=== PATIENT | female | born 1980 | race Caucasian/White ===

== ENCOUNTER 2020-06-17 01:06 | Outpatient (CLI) | payer BC, SELFPAY ==
[2020-06-17 16:32] LABS: SARS-CoV-2 RNA PCR Negative
== END 2020-06-17 01:07 | disposition home or self-care (01) ==
LOC: ANHCOVIDDT 01:06
PROVIDERS: Visit Provider Obstetrics & Gynecology
DX: Z01.812 Encounter for preprocedural laboratory examination (principal); Z20.828 Contact with and (suspected) exposure to other viral communicable diseases
CPT/HCPCS: 87635; C9803; U0003

== ENCOUNTER 2020-06-19 00:30 | Day surgery (SDC) | payer BC, SELFPAY ==
[2020-06-06 14:00] VITALS: BMI 18.4
[2020-06-19] VITALS (16 sets, daily range): BP systolic 112–150; BP diastolic 72–99; PULSE 62–110; RESP 14–20; TEMP 36.3–37.1; O2SAT 91–100
--- NOTE | 2020-06-19 | PM.IMHP ---
H&P: HPI History of Present Illness Date/Time: 06/19/20 00:00 Chief complaint: enlarge uterus, fibroid,menomenorrhaghia Narrative: 39 y/o with a fibroid uterus. She has bled most days of the last 2 months. On ultrasound, the uterus is fibroid. The adnexa demonstrate functional changes. The endometrial complex is unremarkable. She desires definitive management of her problem. Review of Systems Review of Systems: All systems reviewed & are unremarkable except as noted in HPI and below PMFSH Past Medical History Medical History (Updated 06/19/20 @ 00:07 by uRben Ac MD) Depression Lymphangioleiomyomatosis Pneumothorax Surgical History Surgical History History of chest tube placement History of ovarian cystectomy History of tubal ligation Family History Family History (Updated 06/19/20 @ 00:05 by Ruben Ac MD) Other Cerebrovascular accident Hypertension Malignant neoplasm of prostate Social History Social History Years smoked: 5 Smoking status: Former smoker Tobacco type: cigarettes Additional smoking assessment comments: QUIT 2013 Substance use: current Substance use type: marijuana Last use: 06/06/20 Spiritual care concerns: No Meds Home Medications and Allergies Home Medications Medication Instructions Recorded Confirmed Type fluoxetine [Prozac] 80 mg PO DAILY 06/06/20 06/06/20 History sirolimus 2 mg PO DAILY 06/06/20 06/06/20 History Allergies Allergy/AdvReac Type Severity Reaction Status Date / Time amoxicillin Allergy Intermediate Hives / Verified 06/06/20 14:01 Red Face Penicillins Allergy Mild RASH Unverified 06/06/20 14:01 Exam Const: Orientation/consciousness: patient oriented x3 Other: Well-developed, well-nourished female in no acute distress. Neck: Thyroid: thyroid normal Lymphatic: no lymphadenopathy noted (in neck, axilla or inguinal nodes) Resp: Effort & Inspection: normal respiratory effort Auscultation: clear to auscultation bilaterally Cardio: Rate: regular rate Rhythm: regular rhythm Heart sounds: S1 normal heart sound present and S2 normal heart sound present GI: Other: ABD: Soft, nontender, nondistended. No guarding or rebound tenderness. No hepatosplenomegaly. : General: Yes no CVA tenderness Other: External genitalia: normal female hair distribution, without lesion. Urethral meatus: no lesion, non prolapsed. Bladder: no mass, nontender Vagina: well-estrogenized, without lesion or discharge. No cystocele or rectocele. Cervix: no lesion or discharge. Uterus: small, anteverted, freely mobile, nontender Adnexa: no mass or tenderness. Anus/perineum: no lesions, nontender Back/Spine/Pelvis: Back: no CVA tenderness Skin: General skin exam: normal color and no rashes or lesions noted Neuro: General: patient oriented x3 Extrem: Other: Extremities: nontender with no edema Psych: Mental Status: mental status grossly normal Affect: normal affect Assessment and Plan Assessment and plan (1) Menometrorrhagia: Code(s): N92.1 - Excessive and frequent menstruation with irregular cycle Status: Acute Assessment and Plan: I have offered her medical vs. surgical management. She prefers definitive management. She has completed her childbearing and has had a tubal ligation. I have offered her total vaginal hysterectomy with bilateral salpingectomies. We will plan to leave the ovaries in situ. She understands hysterectomy will render her permanently sterile She understands risks of surgery to include risks of anesthesia, risks of pain, infection, bleeding, blood products, thromboembolic phenomena and damage to adjacent structures such as bowel, bladder, ureters, blood vessels and nerves. She understands all these risks and elects to proceed with surgery.
--- NOTE | 2020-06-19 08:02 | WPDANESEPPF ---
Anes - Initial Pre Proc Eval Procedure: Operation Date: 06/19/20 13:00 Proposed Procedures p Total Vaginal Hysterectomy, Bilateral Salpingectomy - Ruben Ac MD Date/Time: 06/19/20 08:02 Surgeon: Ruben Ac MD Pre Op Diagnosis: enlarge uterus, fibroid,menomenorrhaghia Patient Data Age: 39 Gender: F Height: 1.63 m Weight: 48.82 kg Allergies Allergy/AdvReac Type Severity Reaction Status Date / Time amoxicillin Allergy Intermediate Hives / Verified 06/06/20 14:01 Red Face Penicillins Allergy Mild RASH Unverified 06/06/20 14:01 Home Medications Medication Instructions Recorded Confirmed Type fluoxetine [Prozac] 80 mg PO DAILY 06/06/20 06/06/20 History sirolimus 2 mg PO DAILY 06/06/20 06/06/20 History Patient hx anesthesia problems: none Family hx anesthesia problems: none PMFSH Past Medical History Medical History (Updated 06/19/20 @ 08:03 by Bunny Wise MD) Anxiety Depression Lymphangioleiomyomatosis Pneumothorax 67% LUNG FUNCTION, PNEUMOTHORAX R LUNG X1, L LUNG X2, CHEST TUBE X3 Surgical History Surgical History History of chest tube placement History of ovarian cystectomy History of tubal ligation Family History Family History (Updated 06/19/20 @ 00:06 by Ruben Ac MD) Other Cerebrovascular accident Hypertension Malignant neoplasm of prostate Social History Social History Years smoked: 5 Smoking status: Former smoker Tobacco type: cigarettes Additional smoking assessment comments: QUIT 2013 Substance use: current Substance use type: marijuana Last use: 06/06/20 Spiritual care concerns: No Anes - Eval Final PreProcedure Day of Procedure 06/19/20 08:02 Patient weight: cachectic Heart: regular rate and rhythm Lungs: clear to auscultation and normal air movement Airway: Mallampati scale class II Neurological: alert and oriented Last oral intake: >/= 8 hours ASA classification: IV Emergent: no Anesthetic plan: proceed Anesthesia type and monitoring: general LMA and ETT Informed Consent: The patient's anesthetic plan and its attendant risks and benefits were discussed with the patient/family/POA. Questions were solicited and answers provided to the satisfaction of the patient/family/POA.
[2020-06-19] MEDS: ACETAMINOPHEN 500 MG TABLET 1000 MG PO (12:03)
[2020-06-19] MEDS: KETOROLAC 15 MG/ML VIAL (*BKC) IV PUSH (12:03)
[2020-06-19] MEDS: LACTATED RINGERS 1,000 ML 30 ML IV CONT ×2 (12:05→14:48)
--- NOTE | 2020-06-19 12:26 | WPDHPUPDATE1 ---
History and Physical Update Update Date/Time: 06/19/20 12:26 History and Physical has been reviewed, including an updated exam of the patient. There are NO changes in the patient's condition. Risks, benefits, and alternatives have been discussed and questions answered. Patient agrees to proceed with procedure.
[2020-06-19] MEDS: ceFAZolin 2 GM/D5W 50 ML 2 GM/50 ML BAG IVPB (13:29)
--- NOTE | 2020-06-19 14:45 | PM.PROC ---
Procedure Note - Detailed Date of procedure: 06/19/20 Pre-op diagnosis: enlarge uterus, fibroid,menomenorrhaghia Post-op diagnosis: same Procedure performed: Total vaginal hysterectomy with bilateral salpingectomies Incision and drainage of bilateral ovarian cysts Description of procedure: The patient was taken to the operating room where she was prepared and draped in the usual sterile fashion in the dorsal lithotomy position. The bladder was drained with red rubber catheter. A weighted speculum was placed posteriorly. A Yas retractor was used anteriorly. The cervix was grasped with a single-tooth tenaculum. Ten mL of sterile saline was infiltrated circumferentially around the cervix to aid in tissue plane dissection. The cervix was circumscribed using electrocautery. The peritoneal cavity was entered sharply posteriorly and a long weighted speculum was placed. The uterosacral and cardinal ligaments on both sides were then clamped, transected and suture ligated using 0 Vicryl. These were tagged for later identification. The bladder was dissected off the cervix and lower uterine segment and reflected away. The LigaSure device was then used to clamp, ligate and transect the broad ligaments bilaterally. Finally, the utero-ovarian ligament, round ligament and tube complexes on both sides were able to be clamped, transected and suture ligated using 0 Vicryl. The specimen was passed off to be sent to pathology. The bilateral fallopian tubes were then dissected, clamped, ligated and transected using the LigaSure device and passed off the field. The pedicles were inspected and found to be hemostatic. Bilateral simple appearing ovarian cysts were incised with the Bovie and drained of clear fluid. Hemostasis was excellent here as well. The vaginal cuff angles were then transfixed to the ipsilateral cardinal uterosacral ligaments for support. The vaginal cuff was reapproximated using 0 Vicryl in a running, locked fashion. Hemostasis was excellent. A Oh catheter was placed. Vaginal packing soaked in Premarin cream was placed. Sponge, lap, needle and instrument counts were correct. The patient was awakened and taken to the recovery room in stable condition. I was present and scrubbed for the entire procedure. Implants: None Anesthesia: GETA Surgeon: Ruben Ac MD Estimated blood loss (mL): 300 Drains: Yes (Oh) Packing: Yes (Vaginal packing) Pathology: yes (uterus, cervix and bilateral Fallopian tubes) Complications: None Condition: stable Disposition: PACU Findings: Uterus was enlarged and obviously fibroid. Cervix unremarkable. Mild right hydrosalpinx. Evidence of prior tubal ligation. Otherwise unremarkable Fallopian tubes. Bilateral ovaries enlarged, approximately 5x4x4 cm, with simple-appearing cysts.
--- NOTE | 2020-06-19 14:50 | P.DS_ITS ---
DS: Admitting Diagnosis Admitting Diagnosis Admitting Diagnosis: Symptomatic fibroid uterus Menometrorrhagie DS: Discharge Diagnosis Discharge Diagnosis (1) Menometrorrhagia: Code(s): N92.1 - Excessive and frequent menstruation with irregular cycle Status: Acute (2) Fibroid uterus: Code(s): D25.9 - Leiomyoma of uterus, unspecified Status: Acute DS: Data Data Completed and Pending Pending studies at discharge: Pending at discharge 06/19/20 14:07 Surgical [PTH] Routine Labs on day of discharge: Labs from last 24 hours 06/19/20 12:02 Blood Type O Positive Antibody Screen Negative Discharge Plan Discharge Patient Disposition: Home, Self-Care Discharge Instructions: Call or return if temperature above 100.4? F, increased abdominal pain, increased vaginal bleeding or any new problems. Stand Alone Forms: General Discharge Instructions Follow-up/Referrals: Ruben Ac MD [Physician] - (4 weeks) Discharge Medications: New hydrocodone-acetaminophen [[place]] 5-325 mg tablet 1 - 2 tablet PO Q6H PRN (Reason: pain) Qty: 30 RF: 0 No Action fluoxetine [Prozac] 40 mg Capsule 80 mg PO DAILY RF: 0 sirolimus 2 mg Tablet 2 mg PO DAILY RF: 0 Primary Care Provider: MARIA ANTONIA,SOSA Reed Attending physician on admission: Ruben Ac
--- NOTE | 2020-06-19 16:25 | PC.NURSE ---
This patient, Liz Petersen, was received from PACU on 06/19/20 at 1625. Personal belongings list checked and signed. Patient/family oriented to unit policies and routines
[2020-06-19] MEDS: DEXTROSE 5%/0.45% SOD CHL 1,000 ML 125 ML IV CONT (17:15)
[2020-06-19] MEDS: MORPHINE SULFATE 4 MG/ML INJ IV PUSH (17:15)
[2020-06-19] MEDS: KETOROLAC 30 MG/ML VIAL (*BKC) IV PUSH (17:16)
[2020-06-19] MEDS: SIMETHICONE 80 MG TAB.CHEW PO ×2 (17:17→21:41)
[2020-06-19] MEDS: ENOXAPARIN 40 MG/0.4 ML SYRINGE SUB-Q (21:42)
[2020-06-19] MEDS: ONDANSETRON INJ 4 MG/2 ML VIAL IV PUSH (23:03)
[2020-06-20] MEDS: IBUPROFEN 600 MG TABLET PO ×2 (02:52→07:44)
[2020-06-20 04:52] VITALS: BP 121/73; PULSE 79; RESP 18; TEMP 36.7; O2SAT 100
[2020-06-20 05:42] LABS: Basophils Percent Auto 0.2 % (0.2-1.2); Hematocrit 35.8 % (37.0-47.0); Hemoglobin 11.6 g/dL (12.0-15.0); Immature Granulocyte Absolute 0.07 K/mm3 (0.00-0.031); Immature Granulocyte Percent A 0.4 % (0-0.5); Lymphocytes Absolute Auto 1.29 K/mm3 (0.9-3.2); Lymphocytes Percent Auto 8.2 % (18.3-44.2); Mean Corpuscular HGB Conc 32.4 g/dl (32-36); Mean Corpuscular Hemoglobin 27.8 pg (26-34); Mean Corpuscular Volume 85.9 fl (80-100); Mean Platelet Volume 11.8 fl (7.4-10.4); Monocytes Absolute Auto 0.8 K/mm3 (0.1-0.6); Monocytes Percent Auto 5.3 % (2.6-8.5); Neutrophils Absolute Auto 13.6 K/mm3 (1.3-6.7); Neutrophils Percent Auto 85.9 % (45.5-73.1); Platelet Count Result 153 k/mm3 (150-375); Red Blood Count 4.17 M/mm3 (4.2-5.4); Red Cell Distribution Width 13.8 % (11.5-14.5); White Blood Count 15.8 K/mm3 (4.5-10.0)
[2020-06-20] MEDS: FLUoxetine HCL 20 MG CAPSULE 80 MG PO (07:43)
[2020-06-20] MEDS: SIMETHICONE 80 MG TAB.CHEW PO (07:44)
[2020-06-20 08:00] VITALS: BP 114/63; PULSE 67; RESP 18; TEMP 37.1; O2SAT 100
--- NOTE | 2020-06-20 08:51 | PM.GYNPNOP ---
PALEONTOLOGICAL HELPER - A/P Postoperative Procedures: Procedures Operation Date: 06/19/20 13:00 Actual Procedures Side Surgeon p Total Vaginal Hysterectomy, Bilateral Salpingectomy, Incision and Drainage Bilateral Ovarian Cyst Not Applicable Ruben Ac MD A: POD#1, doing well. P: Home to f/u 4 weeks. Time Spent With Patient Time with patient: less than 15 minutes PALEONTOLOGICAL HELPER- PN:Subj Post-Op Subjective Date/time seen: 06/20/20 08:51 Interval history: Pain OK. Tolerating diet. Voiding. Would like to go home. Exam Narrative: Exam Narrative: AVSS I/O OK ABD soft, nontender. EXT nontender PALEONTOLOGICAL HELPER - PN: Obj Data Vital Signs Vital Signs: Vital Signs - 24 hr 06/19/20 11:12 06/19/20 14:48 06/19/20 15:00 Temperature 37.1 C 36.4 C L 36.5 C Pulse Rate 83 110 H 99 Respiratory Rate 20 16 18 Blood Pressure 150/99 H 144/91 H 137/85 Pulse Oximetry 94 100 99 06/19/20 15:15 06/19/20 15:30 06/19/20 15:45 Temperature 36.9 C 36.8 C 36.6 C Pulse Rate 95 79 79 Respiratory Rate 17 14 19 Blood Pressure 130/88 131/84 123/82 Pulse Oximetry 95 92 95 06/19/20 16:00 06/19/20 16:15 06/19/20 16:30 Temperature 36.7 C 36.3 C L Pulse Rate 71 78 81 Respiratory Rate 18 16 20 Blood Pressure 116/91 H 114/81 120/80 Pulse Oximetry 91 92 100 06/19/20 16:45 06/19/20 17:00 06/19/20 17:15 Temperature Pulse Rate 72 74 69 Respiratory Rate 18 20 18 Blood Pressure 118/79 112/80 131/78 Pulse Oximetry 100 99 100 06/19/20 18:00 06/19/20 19:00 06/19/20 20:15 Temperature 36.6 C Pulse Rate 72 69 95 Respiratory Rate 18 Blood Pressure 144/72 H 125/82 133/95 H Pulse Oximetry 96 97 100 06/19/20 23:08 06/20/20 04:52 Temperature 36.9 C 36.7 C Pulse Rate 62 79 Respiratory Rate 15 18 Blood Pressure 119/77 121/73 Pulse Oximetry 98 100 Intake/Output Intake/Output: Intake & Output 06/17/20 06/18/20 06/19/20 06/20/20 23:59 23:59 23:59 23:59 Intake Total 1250 800 Output Total 370 1600 Balance 880 -800 Meds/Results Medications: Active Medications Generic Name Dose Route Start Last Admin Trade Name Freq PRN Reason Stop Dose Admin Hydrocodone Bitart/Acetaminophen 1 tab 06/19/20 16:19 06/20/20 07:45 [place] 5-325 Mg PO 1 tab Q3H PRN Administration Pain Rated 5 or Less Hydrocodone Bitart/Acetaminophen 1 tab 06/19/20 16:19 [place] 10-325 Mg PO Q3H PRN Pain Rated 6 or Greater Enoxaparin Sodium 40 mg 06/19/20 21:00 06/19/20 21:42 Lovenox SUB-Q 40 mg DAILY@2100 LETTY Administration Fluoxetine HCl 80 mg 06/20/20 09:00 06/20/20 07:43 Prozac PO 80 mg DAILY LETTY Administration Dextrose/Sodium Chloride 1,000 mls @ 125 mls/hr 06/19/20 16:19 06/19/20 17:15 Dextrose 5% Sodium Chloride 0.45% IV CONT 125 mls/hr .Q8H LETTY Administration Ibuprofen 600 mg 06/19/20 16:19 06/20/20 07:44 Motrin PO 600 mg Q6H PRN Administration Cramping Ketorolac Tromethamine 30 mg 06/19/20 16:19 06/19/20 17:16 Toradol Inj IV PUSH 06/24/20 16:20 30 mg Q6H PRN Administration Pain Rated 4-6 Morphine Sulfate 4 mg 06/19/20 16:19 06/19/20 17:15 Morphine Sulfate Inj IV PUSH 4 mg Q4H PRN Administration Severe breakthrough pain Naloxone HCl 0.1 mg 06/19/20 16:19 Narcan IV PUSH Q2M PRN Respiratory rate less than 10 Non-Formulary Medication 2 mg 06/20/20 09:00 Sirolimus PO 07/20/20 09:01 DAILY LETTY Ondansetron HCl 4 mg 06/19/20 16:19 06/19/20 23:03 Zofran Inj IV PUSH 4 mg Q6H PRN Administration Nausea And Vomiting Simethicone 80 mg 06/19/20 16:19 06/20/20 07:44 Mylicon PO 80 mg Q2H PRN Administration Gas Labs CBC & Chem 7: 06/20/20 04:49 Labs: Laboratory Results - last 24 hr 06/19/20 06/20/20 12:02 04:49 WBC 15.8 H RBC 4.17 L Hgb 11.6 L Hct 35.8 L MCV 85.9 MCH 27.8 MCHC 32.4 RDW 13.8 Plt Count 153 MPV 11.8 H Immature Gran % (Auto)
--- NOTE | 2020-06-20 09:31 | WPDANESPN ---
Anes - Prog Note Post-Op Date/Time: 06/20/20 09:31 Cardiovascular status: normal Respiratory status: normal Airway patency: baseline Mental status: baseline Post-Op hydration status: normal Vital Signs: Last Vital Signs Temp 36.7 C 06/20/20 04:52 Pulse 79 06/20/20 04:52 Resp 18 06/20/20 04:52 BP 121/73 06/20/20 04:52 Pulse Ox 100 06/20/20 04:52 Pain Score (VAS): 0/10 I/O: Intake & Output 06/19/20 06/20/20 06/20/20 23:59 07:59 15:59 Intake Total 700 800 Output Total 310 1600 Balance 390 -800 Laboratory Tests 06/20/20 04:49 06/19/20 06/20/20 12:02 04:49 WBC 15.8 H RBC 4.17 L Hgb 11.6 L Hct 35.8 L MCV 85.9 MCH 27.8 MCHC 32.4 RDW 13.8 Plt Count 153 MPV 11.8 H Immature Gran % (Auto) 0.4 Neut % (Auto) 85.9 H Lymph % (Auto) 8.2 L [place] % (Auto) 5.3 Eos % (Auto) 0.0 Baso % (Auto) 0.2 Lymph # (Auto) 1.29 [place] # (Auto) 0.8 H Eos # (Auto) 0.0 Baso # (Auto) 0.0 Abs Immat Gran (auto) 0.07 H Absolute Neuts (auto) 13.6 H Absolute Nucleated RBC 0.0 Nucleated RBC % 0.0 Blood Type O Positive Antibody Screen Negative Post-procedural complaints: none Patient Feedback: Patient satisfied with anesthetic care.
--- NOTE | 2020-06-20 10:46 | PC.NURSE ---
Self care discharge instructions given to pt.l including when to make appt. with MD. Pt. doing well. Voiced understanding. No questions or concerns noted. at side. Anxious for discharge.
== END 2020-06-20 11:25 | disposition home or self-care (01) ==
LOC: ANHSURGERY 14:51 → ANHOB2 17:15
PROVIDERS: PCP Family Medicine; Visit Provider Obstetrics & Gynecology
PROC: (CPT 58260; principal; 2020-06-19 13:00)
DX: N72 Inflammatory disease of cervix uteri (principal); N80.0 Endometriosis of uterus; N73.6 Female pelvic peritoneal adhesions (postinfective); N70.11 Chronic salpingitis; N83.8 Other noninflammatory disorders of ovary, fallopian tube and broad ligament; N92.1 Excessive and frequent menstruation with irregular cycle; F41.8 Other specified anxiety disorders; Z87.891 Personal history of nicotine dependence; F12.90 Cannabis use, unspecified, uncomplicated
CPT/HCPCS: 58262; 36415; 85025; 86850; 86900; 86901; 88307; 99199; A9270; J0690; J1100; J1170; J1650; J1885; J2250; J2270; J2405; J2704; J3010; J7030; J7120

== ENCOUNTER 2021-03-21 20:57 | Inpatient (IN) | payer OTHER, SELFPAY ==
--- NOTE | ~2021-03-21 | CT_ITS ---
EXAMINATION: CT abdomen pelvis w con EXAM DATE: 03/22/2021 00:26 INDICATION: Low abdominal pain. Dysuria. Reportedly recently admitted for ovarian abscess. TECHNIQUE: Spiral CT of the abdomen and pelvis was performed following intravenous injection of 100 m L Omnipaque 350. Axial, coronal and sagittal images of the abdomen and pelvis were reviewed. The do se-length product (DLP) for this examination was 473.39 mGy-cm. The exposure was tailored according to patient size (auto mA exposure control), and iterative reconstruction (ASIR) was used as additiona l dose reduction technique. There is no prior study for comparison. FINDINGS: Enlarged multicystic bilateral adnexal regions with extensive fat stranding, most consisten t with bilateral tubo-ovarian abscesses. Measurements obtained at 9.0 x 4.5 x 7.1 cm on the right and 12.0 x 5.3 x 10.0 cm on the left. Significant bladder wall thickening which could be reactive or cys titis, correlate with urinalysis. Thickening of the traversing adjacent sigmoid colon which also coul d be reactive or colitis. The liver, spleen, adrenal glands and pancreas are unremarkable. Gallbladder is unremarkable. No bi liary obstruction. Portal and splenic veins are patent. Kidneys enhance symmetrically. There is no hydronephrosis. The prostate is unremarkable. The bladder is unremarkable. There is no retroperi toneal or pelvic lymphadenopathy. Small fat-containing umbilical hernia. The appendix is dilated, probably secondarily from the pelvic inflammation. The stomach and small priscilla wel are unremarkable. There is moderate amount of colonic stool. No free intraperitoneal gas. He art is normal in size. There are left-sided calcified pleural plaques and mild pleural thickening, pr obably from prior empyema given right-sided is normal. Moderate amount of basilar lung cysts, appear ance most consistent with lymphangioleiomyomatosis. Bilateral L5 spondylolysis with grade 2 anteroli sthesis L5 on S1, chronic. IMPRESSION: 1. Bilateral adnexal complex cystic masses with inflammation probably tubo-ovarian abscesses. 2. Severe bladder wall thickening cystitis and/or reactive. 3. Moderate sigmoid edema, colitis or reactive. 4. Appendix dilation probably reactive. 5. 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 6. Chronic L5 spondylolysis, grade 2 anterolisthesis. Reviewed, dictated and finalized at location A. IMPRESSION: 1. Bilateral adnexal complex cystic masses with inflammation probably tubo-ova miguel abscesses. 2. Severe bladder wall thickening cystitis and/or reactive. 3. Moderate sigmoid edema, colitis or reactive. 4. Appendix dilation probably reactive. 5. 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 6. Chronic L5 spondylolysis, grade 2 anterolisthesis.
[2021-03-21 21:22] VITALS: BP 140/94; PULSE 97; RESP 18; O2SAT 100
--- NOTE | 2021-03-21 23:31 | PC.NURSE ---
No answer for blood draw in waiting room.
[2021-03-21 23:49] LABS: Basophils Percent Auto 0.4 % (0.2-1.2); Eosinophils Absolute Auto 0.1 K/mm3 (0-0.3); Eosinophils Percent Auto 1.7 % (0-4.4); Hematocrit 34.1 % (37.0-47.0); Hemoglobin 10.6 g/dL (12.0-15.0); Immature Granulocyte Absolute 0.02 K/mm3 (0.00-0.031); Immature Granulocyte Percent A 0.2 % (0-0.5); Lymphocytes Absolute Auto 2.02 K/mm3 (0.9-3.2); Lymphocytes Percent Auto 25.1 % (18.3-44.2); Mean Corpuscular HGB Conc 31.1 g/dl (32-36); Mean Corpuscular Hemoglobin 24.4 pg (26-34); Mean Corpuscular Volume 78.4 fl (80-100); Mean Platelet Volume 10.5 fl (7.4-10.4); Monocytes Absolute Auto 0.6 K/mm3 (0.1-0.6); Monocytes Percent Auto 7.8 % (2.6-8.5); Neutrophils Absolute Auto 5.2 K/mm3 (1.3-6.7); Neutrophils Percent Auto 64.8 % (45.5-73.1); Platelet Count Result 191 k/mm3 (150-375); Red Blood Count 4.35 M/mm3 (4.2-5.4); Red Cell Distribution Width 18.8 % (11.5-14.5); White Blood Count 8.1 K/mm3 (4.5-10.0)
[2021-03-21 23:59] LABS: Alanine Aminotransferase 14 U/L (4-35); Albumin Level 3.9 g/dL (3.5-5.1); Alkaline Phosphatase 99 U/L (38-126); Anion Gap 9 mmol/L (8-16); Aspartate Amino Transferase 28 U/L (14-36); Bilirubin,Total 0.4 mg/dL (0.2-1.3); Blood Urea Nitrogen 13 mg/dL (7-17); Calcium 9.2 mg/dL (8.4-10.2); Carbon Dioxide 28 mmol/L (22-30); Chloride 102 mmol/L (98-107); Estimated CRCL calculation 74 ml/min; Estimated Glomerular Filt Rate > 60; Glucose 87 mg/dL (65-105); Lipase 133 U/L (23-300); Potassium 3.4 mmol/L (3.4-5.0); Sodium 139 mmol/L (137-145)
[2021-03-22 00:24] LABS: Add Urine Microscopic? YES; Appearance Urine Clear (Clear); Bacteria Urine Trace /hpf; Bilirubin Urine Negative (Negative); Blood Urine Negative (Negative); Color Urine Amber (Yellow); Glucose Urine UA Negative (Negative); Ketones Urine Negative (Negative); Leukocyte Esterase Ur Negative LEU/UL (Negative); Mucus Urine Heavy /lpf; Nitrate Urine Negative (Negative); Protein Urine 2+ mg/dL (Negative); Squamous Epithelial Cell Urine Few /hpf (Few)
[2021-03-22 00:25] LABS: Specific Grav Ur 1.032 (1.001-1.035)
--- NOTE | 2021-03-22 01:42 | ED.GENADULT ---
HPI - General Adult General Chief complaint: Abdominal Pain Stated complaint: abd pain Time Seen by Provider: 03/21/21 23:51 History of Present Illness HPI narrative: Patient 40-year-old female presents emerged from with chief complaint of pelvic pain. Patient reports that she was recently admitted at [facility] after having a tubo-ovarian abscess and colitis. The patient states she was treated with antibiotics finished a course of antibiotics was feeling better and then the last couple of days she started having pain again in bilateral pelvic areas. The patient states that she has had a hysterectomy previously by Dr. Casey. Patient states that she had no fevers Related Data Home Medications Medication Instructions Recorded Confirmed fluoxetine [Prozac] 80 mg PO DAILY 06/06/20 06/19/20 sirolimus 2 mg PO DAILY 06/06/20 06/19/20 Allergies Allergy/AdvReac Type Severity Reaction Status Date / Time amoxicillin Allergy Intermediate Hives / Verified 03/21/21 21:27 Red Face Penicillins Allergy Mild RASH Verified 03/21/21 21:27 Review of Systems Review of Systems: Narrative: A 10 system review of systems was completed on the patient and is negative except for what is stated in the HPI. Nursing and ancillary documentation was reviewed. [facility] Past Medical History Medical History Anxiety Depression Lymphangioleiomyomatosis Pneumothorax 67% LUNG FUNCTION, PNEUMOTHORAX R LUNG X1, L LUNG X2, CHEST TUBE X3 Surgical History Surgical History History of chest tube placement History of ovarian cystectomy History of tubal ligation Family History Family History Other Cerebrovascular accident Hypertension Malignant neoplasm of prostate Social History Social History Years smoked: 5 Smoking status: Former smoker Tobacco type: cigarettes Additional smoking assessment comments: QUIT 2013 Substance use: current Substance use type: marijuana Last use: 06/06/20 Spiritual care concerns: No Exam Narrative: Exam Narrative: GENERAL: Well-appearing, well-nourished, and in no acute distress. HEAD: Normocephalic, atraumatic. EYES: PERRLA and EOMI. ENT: Nares clear, no rhinorrhea or epistaxis. Mucous membranes moist. NECK: Supple. CHEST: Clear to auscultation. No respiratory distress. HEART: Regular rate and rhythm. No murmur heard. Normal peripheral pulses. ABDOMEN: Soft, tender to palpation in bilateral lower quadrants, nondistended, normal active bowel sounds. EXTREMITIES: Normal range of motion. No edema. SKIN: Warm, dry, no rash. NEURO: No focal deficits. Alert and oriented x3. PSYCH: Normal mood and affect. Course Course Emergency Course: CT scan showed evidence of enlarged multicystic bilateral adnexa concerning for tubo-ovarian abscesses. There is also evidence of proctocolitis and the appendix was somewhat enlarged although it was felt that this was reactive by the radiologist. The case was discussed with Dr. Elizondo who is on-call for [employer] the patient will be admitted for observation and pain control and further evaluation. Vital Signs Vital signs: Vital Signs Pulse Rate 97 03/21/21 21:22 Respiratory Rate 18 03/21/21 21: Blood Pressure 140/94 H 03/21/21 21:22 Pulse Oximetry 100 03/21/21 21: Pulse Rate 97 03/21/21 21:22 Respiratory Rate 18 03/21/21 21: Blood Pressure 140/94 H 03/21/21 21: Pulse Oximetry 100 03/21/21 21:22 Medical Decision Making Vital Signs Vital Signs: Vital Signs Pulse Rate 97 03/21/21 21: Respiratory Rate 18 03/21/21 21: Blood Pressure 140/94 H 03/21/21 21:22 Pulse Oximetry 100 03/21/21 21:22 Pulse Rate 97 03/21/21 21:22 Respiratory Rate 18
[2021-03-22 02:13] VITALS: BP 139/76; PULSE 94; RESP 18; O2SAT 99
--- NOTE | 2021-03-22 02:47 | PC.NURSE ---
Attempt to call report to floor, floor unable to take. Pt ambulatory with assist to bathroom, c/o worsening abd pain. Dr. Spain made aware.
[2021-03-22] MEDS: MORPHINE SULFATE (*CRX) 4 MG/ML INJ IV PUSH ×5 (02:53→22:24)
--- NOTE | 2021-03-22 03:00 | ADMGEN ---
This patient, Liz Petersen, was admitted to 2 Medical Room 247-01 03/22/21 @0300. Patient/family oriented to hospital policies and general routines including ID bracelet, bed and alarms, visiting hours, pain management, procedures, bathroom and other care routines, personal items, smoking policy, room service/diet, and visiting hours. Information on how to activate the Rapid Response Team has been discussed. Patient/Family are encouraged to report perceived risks to care and to ask questions if they do not understand what they are told or what they should do.
[2021-03-22] MEDS: SODIUM CHLORIDE 0.9% IV 1,000 ML 125 ML IV CONT (03:15)
[2021-03-22 06:00] VITALS: BP 137/99; PULSE 102; RESP 16; TEMP 36.4; O2SAT 100
[2021-03-22 06:06] VITALS: BMI 32.1
[2021-03-22] MEDS: ONDANSETRON INJ 4 MG/2 ML VIAL IV PUSH ×4 (06:29→22:25)
[2021-03-22 08:00] VITALS: PULSE 102; RESP 16; O2SAT 94
--- NOTE | 2021-03-22 08:25 | PM.IMHP ---
H&P: HPI History of Present Illness Date/Time: 03/22/21 08:25 40 yo F who presented to the ED with complaints of worsening abdominal/pelvic pain. Pt states that approximately 3 weeks ago she was admitted at [facility] in [place], [place] for similar symptoms. She was given a course of IV antibiotics and discharged home with a course of PO antibiotics of suspected tuboovarian abscess. Pt was seen in the office this past week for follow up and received an US. Pt states she had some cysts of her ovaries but there was no concern at that time. Pt is s/p hysterectomy with bilateral salpingectomy in 2019. 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 Pt states her abdominal/pelvic pain worsened since the time of her visit so she presented to the ED. Pt had a CT sacan which showed enlarged cystic ovaries and proctitis. Pt states she still had some abdominal/pelvic discomfort. She denies any nausea, vomiting, fevers, chills. Chief Complaint: abdominal pain Review of Systems Review of Systems: All systems reviewed & are unremarkable except as noted in HPI and below PMFSH Past Medical History Medical History Anxiety Depression Lymphangioleiomyomatosis Pneumothorax 67% LUNG FUNCTION, PNEUMOTHORAX R LUNG X1, L LUNG X2, CHEST TUBE X3 Surgical History Surgical History History of chest tube placement History of ovarian cystectomy History of tubal ligation Family History Family History Other Cerebrovascular accident Hypertension Malignant neoplasm of prostate Social History Social History Years smoked: 5 Smoking status: Former smoker Tobacco type: cigarettes Additional smoking assessment comments: QUIT 2013 Alcohol intake: never Substance use: never Substance use type: does not use Last use: 06/06/20 Spiritual care concerns: No Meds Home Medications and Allergies Home Medications Medication Instructions Recorded Confirmed Type sirolimus 2 mg PO DAILY 06/06/20 03/22/21 History venlafaxine 150 mg PO DAILY 03/22/21 03/22/21 History Allergies Allergy/AdvReac Type Severity Reaction Status Date / Time amoxicillin Allergy Intermediate Hives / Verified 03/22/21 03:18 Red Face Penicillins Allergy Mild RASH Verified 03/22/21 03:18 Vital Signs Vital Signs - 24 hr 03/21/21 21:22 03/22/21 02:13 03/22/21 06:00 Temperature 36.4 C L Pulse Rate 97 94 102 H Respiratory Rate 18 18 16 Blood Pressure 140/94 H 139/76 137/99 H Pulse Oximetry 100 99 100 Exam Const: General: cooperative, comfortable and no acute distress Eyes: General: appearance normal, both eyes and all related structures Neck: Neck: normal visual inspection Resp: Effort & Inspection: normal respiratory effort and able to speak in complete sentences Cardio: Rate: tachycardic Rhythm: regular rhythm GI: Inspection: normal to inspection GI Palp: Yes abdominal tenderness, Yes Soft to palpation, No Guarding due to palpation present (GI) and No Rebound tenderness present Skin: General skin exam: normal color and no rashes or lesions noted Neuro: General: patient oriented x3 Cognition (Neuro): normal cognition Speech: normal speech Extrem: General: normal to inspection and full ROM Psych: Appearance: grossly normal and well kempt Mental Status: mental status grossly normal H&P: Results Labs Labs: Short CBC 03/21/21 Range/Units 23:44 WBC 8.1 (4.5-10.0) K/mm3 Hgb 10.6 L (12.0-15.0) g/dL Hct 34.1 L (37.0-47.0) % Plt Count 191 (150-375) k/mm3 BMP 03/21/21 23:44 Sodium 139 Potassium 3.4 Chloride 102 Carbon Dioxide 28 BUN 13 Creatinine 0.90 Glucose 87 Calcium 9.2 Liver Function 03/11
[2021-03-22] MEDS: cefoTEtan DISODIUM INJ 2 GM in DEXTROSE 5% IN WATER 50 ML IVPB ×2 (10:22→22:18)
[2021-03-22] MEDS: DOXYCYCLINE HYCLATE 100 MG TABLET PO ×2 (10:22→22:18)
[2021-03-22 11:07] VITALS: O2SAT 94
[2021-03-22 14:20] VITALS: BP 142/84; PULSE 92; RESP 16; TEMP 36.6; O2SAT 98
[2021-03-22 21:10] VITALS: BP 139/85; PULSE 81; RESP 16; TEMP 36.9; O2SAT 96
[2021-03-23] MEDS: MORPHINE SULFATE (*CRX) 4 MG/ML INJ IV PUSH ×2 (03:21→07:49)
[2021-03-23] MEDS: ONDANSETRON INJ 4 MG/2 ML VIAL IV PUSH ×2 (03:21→07:49)
[2021-03-23 05:31] VITALS: BP 143/85; PULSE 96; RESP 16; TEMP 36.9; O2SAT 95
--- NOTE | 2021-03-23 08:31 | PM.DS ---
DS: Admitting Diagnosis Admitting Diagnosis Admitting Diagnosis: abdominal pain ovarian cysts DS: Discharge Diagnosis Discharge Diagnosis (1) Abdominal pain: Qualifiers: Abdominal location: lower abdomen, unspecified Qualified Code(s): R10.30 - Lower abdominal pain, unspecified Code(s): R10.9 - Unspecified abdominal pain Status: Acute DS: Summary Hospital Course Reason for hospitalization: acute abdominal pain ovarian cysts Hospital Course: 40 yo F who presents for acute onset abdominal pain. CT scan in the ED showed bilaterally enlarged cystic ovaries and overall pelvic inflammation. Pt was seen several weeks earlier in [facility] for similar symptoms. She was treated with antibiotics at that time which improved her symptoms. Pt was treated for suspected TOA. Pt is s/p hysterectomy. She remained afebrile and without any leukocytosis. She received IV cefotetan and doxycycline. Pt remains stable today. She states her pain is still present but overall tolerable with pain medications. Status at Discharge Overall status at discharge: patient is progressing back to baseline Time Spent with Patient Time attestation: Total time spent providing and/or coordinating discharge services: Time spent: Less than 30 minutes Exam Const: General: cooperative, healthy appearing, comfortable and no acute distress Eyes: General: appearance normal, both eyes and all related structures Neck: Neck: normal visual inspection Resp: Effort & Inspection: normal respiratory effort and able to speak in complete sentences Cardio: Rate: regular rate Rhythm: regular rhythm GI: Inspection: normal to inspection and non-distended GI Palp: Yes abdominal tenderness, Yes Soft to palpation, No Guarding due to palpation present (GI) and No Rebound tenderness present Skin: General skin exam: normal color and no rashes or lesions noted Neuro: General: oriented to person, oriented to place and oriented to time Extrem: General: normal to inspection and full ROM Psych: Appearance: grossly normal and well kempt Mental Status: mental status grossly normal Discharge Plan Discharge Discharging Clinician: Marlon Elizondo Patient Disposition: Home, Self-Care Activity: as tolerated and pelvic rest Diet: regular Patient Instructions: Antibiotic Form Stand Alone Forms: General Discharge Information Follow-up/Referrals: Ruben Ac MD [Physician] - Call for Appointment Discharge Medications: New hydrocodone-acetaminophen 5-325 mg tablet 1 tablet PO Q4H PRN (Reason: pain) Qty: 28 RF: 0 doxycycline hyclate 100 mg Tablet 100 mg PO Q12HR 14 Days Qty: 28 RF: 0 Continued sirolimus 2 mg Tablet 2 mg PO DAILY RF: 0 venlafaxine 150 mg capsule,extended release 24hr 150 mg PO DAILY RF: 0 Date of admission: 03/22/21 07:21 Primary Care Provider: PHYSICIAN NOT ON STAFF,NONSTAFF Admitting Provider: Marlon Elizondo Attending physician on admission: Marlon Elizondo Condition: Stable
== END 2021-03-23 09:17 | disposition home or self-care (01) | DRG 759 ==
LOC: ANHED 03-22 01:46 → ANH2MED 03-22 02:28
PROVIDERS: Admitting Provider Student in an Organized Health Care Education/Training Program; Emergency Provider Emergency Medicine; Visit Provider Student in an Organized Health Care Education/Training Program
DX: N70.03 Acute salpingitis and oophoritis (principal); N83.202 Unspecified ovarian cyst, left side; N83.201 Unspecified ovarian cyst, right side; F32.9 Major depressive disorder, single episode, unspecified; F41.9 Anxiety disorder, unspecified; Z87.891 Personal history of nicotine dependence; Z90.710 Acquired absence of both cervix and uterus
CPT/HCPCS: 36415; 74177; 80053; 81001; 83690; 85025; 96361; 96375; 96376; 99285; A9270; G0378; J2270; J2405; J7030; Q9967

== ENCOUNTER → 2021-03-25 01:33 | Outpatient (CLI) | payer OTHER, SELFPAY ==
[2021-03-25 17:24] LABS: SARS-CoV-2 RNA PCR Negative
== END ==
PROVIDERS: Visit Provider Obstetrics & Gynecology
DX: Z01.812 Encounter for preprocedural laboratory examination (principal); Z20.822 Contact with and (suspected) exposure to COVID-19
CPT/HCPCS: C9803; U0003; U0005

== ENCOUNTER 2021-03-26 19:41 | Inpatient (IN) | payer OTHER, SELFPAY ==
[2021-03-24 15:27] VITALS: BMI 29.2
--- NOTE | 2021-03-25 13:11 | WPDANESEPPF ---
Anes - Initial Pre Proc Eval Procedure: Operation Date: 03/26/21 13:00 Proposed Procedures p Laparoscopic Bilateral Salpingo Oophorectomy, Possible Open Laparotomy - Ruben Ac MD Date/Time: 03/25/21 13:11 Surgeon: Ruben Ac MD Pre Op Diagnosis: Bilateral pelvic cyst, pelvic pain Patient Data Age: 40 Gender: F Height: 1.63 m Weight: 77.11 kg Allergies Allergy/AdvReac Type Severity Reaction Status Date / Time amoxicillin Allergy Intermediate Hives / Verified 03/24/21 15:25 Red Face Penicillins Allergy Mild RASH Verified 03/24/21 15:25 Home Medications Medication Instructions Recorded Confirmed Type sirolimus 2 mg PO DAILY 06/06/20 03/24/21 History venlafaxine 150 mg PO DAILY 03/22/21 03/24/21 History doxycycline hyclate 100 mg PO Q12HR 14 Days #28 tablet 03/23/21 03/24/21 Rx hydrocodone-acetaminophen 1 tablet PO Q4H PRN #28 tablet 03/23/21 03/24/21 Rx Patient hx anesthesia problems: none Family hx anesthesia problems: none PMFSH Past Medical History Medical History Abdominal pain Anxiety Depression Fibroid uterus Lymphangioleiomyomatosis Menometrorrhagia Ovarian cyst Pneumothorax 67% LUNG FUNCTION, PNEUMOTHORAX R LUNG X1, L LUNG X2, CHEST TUBE X3 Surgical History Surgical History History of bilateral salpingectomy History of chest tube placement History of ovarian cystectomy History of total vaginal hysterectomy (TVH) History of tubal ligation Family History Family History Other Cerebrovascular accident Hypertension Malignant neoplasm of prostate Social History Social History Years smoked: 5 Smoking status: Former smoker Tobacco type: cigarettes Smoking end date: 10/11/12 Additional smoking assessment comments: QUIT 2013 Alcohol intake: never Substance use: current Substance use type: marijuana Other substance usage details: EDIBLE Last use: 03/10/21 Living arrangements: with family Spiritual care concerns: No Anes - Eval Final PreProcedure Day of Procedure 03/25/21 13:11 Patient weight: overweight Heart: regular rate and rhythm Lungs: clear to auscultation and normal air movement Airway: Mallampati scale class II Neurological: alert and oriented Last oral intake: >/= 8 hours ASA classification: III Emergent: no Anesthetic plan: proceed Anesthesia type and monitoring: general LMA and ETT Informed Consent: The patient's anesthetic plan and its attendant risks and benefits were discussed with the patient/family/POA. Questions were solicited and answers provided to the satisfaction of the patient/family/POA.
[2021-03-26] VITALS (16 sets, daily range): BP systolic 119–168; BP diastolic 77–111; PULSE 79–108; RESP 8–19; TEMP 36.5–36.6; O2SAT 98–100; BMI 30.1
--- NOTE | 2021-03-26 08:34 | PM.IMHP ---
H&P: HPI History of Present Illness Date/Time: 03/26/21 08:34 40 y/o who had a TVH with bilateral salpingectomies for menometrorrhagia in 06/30. For several months now, she has had pain in the low abdomen and pelvis in the setting of bilateral large ovarian cysts. She has had two brief hospital stays. Recent CT shows bilateral adnexal complex cysitic masses with inflammation, probably tuboovarian abscesses, but she has never had an elevated WBC count or any fever. On the right, the complex cysts measured 9 x 4.5 x 7.1 cm and on the left 12 x 5.3 x 10 cm. There is no retroperitoneal or pelvic lymphadenopathy. Bladder wall thickening and thickening of the adjacent sigmoid colon could represent reactive change, or cystitis and colitis. Pain has seemed to improve on antibiotic therapy, however. She desires definitive management with bilateral oophorectomy. She understands she may well have an abrupt onset of menopausal symptoms requiring treatment. Moreover, she has been told by her finance specialist that she won't be able to take ERT. Chief Complaint: Pain Review of Systems Review of Systems: All systems reviewed & are unremarkable except as noted in HPI and below PMFSH Past Medical History Medical History Abdominal pain Anxiety Depression Fibroid uterus Lymphangioleiomyomatosis Menometrorrhagia Ovarian cyst Pneumothorax 67% LUNG FUNCTION, PNEUMOTHORAX R LUNG X1, L LUNG X2, CHEST TUBE X3 Surgical History Surgical History History of bilateral salpingectomy History of chest tube placement History of ovarian cystectomy History of total vaginal hysterectomy (TVH) History of tubal ligation Family History Family History Other Cerebrovascular accident Hypertension Malignant neoplasm of prostate Social History Social History Years smoked: 5 Smoking status: Former smoker Tobacco type: cigarettes Smoking end date: 10/11/12 Additional smoking assessment comments: QUIT 2013 Alcohol intake: never Substance use: current Substance use type: marijuana Other substance usage details: EDIBLE Last use: 03/10/21 Living arrangements: with family Spiritual care concerns: No Meds Home Medications and Allergies Home Medications Medication Instructions Recorded Confirmed Type sirolimus 2 mg PO DAILY 06/06/20 03/24/21 History venlafaxine 150 mg PO DAILY 03/22/21 03/24/21 History doxycycline hyclate 100 mg PO Q12HR 14 Days #28 tablet 03/23/21 03/24/21 Rx hydrocodone-acetaminophen 1 tablet PO Q4H PRN #28 tablet 03/23/21 03/24/21 Rx Allergies Allergy/AdvReac Type Severity Reaction Status Date / Time amoxicillin Allergy Intermediate Hives / Verified 03/24/21 15:25 Red Face Penicillins Allergy Mild RASH Verified 03/24/21 15:25 Exam Const: Orientation/consciousness: patient oriented x3 Other: Well-developed, well-nourished female in no acute distress. Neck: Thyroid: thyroid normal Lymphatic: no lymphadenopathy noted (in neck, axilla or inguinal nodes) Resp: Effort & Inspection: normal respiratory effort Auscultation: clear to auscultation bilaterally Cardio: Rate: regular rate Rhythm: regular rhythm Heart sounds: S1 normal heart sound present and S2 normal heart sound present GI: Other: ABD: Soft, mildly tender in lower quadrants to deep palpation, nondistended. No guarding or rebound tenderness. No hepatosplenomegaly. : General: Yes no CVA tenderness Other: Deferred to OR. Back/Spine/Pelvis: Back: no CVA tenderness Skin: General skin exam: normal color and no rashes or lesions noted Neuro: General: patient oriented x3 Extrem: Other: Extremities: nontender with no edema Psych: Mental Status: mental status grossly normal Affect: normal affe
[2021-03-26] MEDS: LACTATED RINGERS 1,000 ML 30 ML IV CONT ×2 (11:33→18:07)
[2021-03-26] MEDS: KETOROLAC 15 MG/ML VIAL (*BKC) IV PUSH (11:34)
[2021-03-26] MEDS: ACETAMINOPHEN 500 MG TABLET 1000 MG PO (11:34)
--- NOTE | 2021-03-26 12:42 | WPDHPUPDATE1 ---
History and Physical Update Update Date/Time: 03/26/21 12:42 History and Physical has been reviewed, including an updated exam of the patient. There are NO changes in the patient's condition. Risks, benefits, and alternatives have been discussed and questions answered. Patient agrees to proceed with procedure.
[2021-03-26] MEDS: ceFAZolin SODIUM 1 GM VIAL 2 GM IV PUSH ×2 (13:22→16:07)
--- NOTE | 2021-03-26 16:33 | SUR.OPER ---
Dr Ac out of OR at 16:24.
[2021-03-26 16:58] LABS: Hematocrit 34.7 % (37.0-47.0); Hemoglobin 10.8 g/dL (12.0-15.0); Mean Corpuscular HGB Conc 31.1 g/dl (32-36); Mean Corpuscular Hemoglobin 25.8 pg (26-34); Mean Corpuscular Volume 82.8 fl (80-100); Platelet Count Result 194 k/mm3 (150-375); Red Blood Count 4.19 M/mm3 (4.2-5.4); Red Cell Distribution Width 18.8 % (11.5-14.5); White Blood Count 12.2 K/mm3 (4.5-10.0)
--- NOTE | 2021-03-26 17:03 | SUR.OPER ---
Dr Ac out 1658.
[2021-03-26 17:06] LABS: INR 1.2; Prothrombin Time 15.8 Seconds (11.1-14.7)
[2021-03-26 17:07] LABS: Partial Thromboplastin Time 38.4 SECONDS (22.3-36.8)
--- NOTE | 2021-03-26 17:21 | SUR.OPER ---
DR. HUGHES IN OR SCRUBBED 17:22
--- NOTE | 2021-03-26 18:02 | W.PM.PROC2 ---
Procedure Note - Detailed Date of Procedure 03/26/21 Pre-op Diagnosis Bilateral pelvic cyst, pelvic pain Post-op Diagnosis same (Inflammation of sigmoid colon, pelvic adhesions) Procedure Performed Diagnostic laparoscopy Exploratory laparotomy Excision of pelvic peritoneal cyst Lysis of adhesions Bilateral oophorectomy Excision of sigmoid colon Surgeon Ruben Ac MD Consulting Surgeon: Otilio Davila MD Anesthesia general Indications Pelvic pain Bilateral ovarian cysts Findings Enlarged ovaries bilaterally Dense pelvic adhesions Inflammatory mass of sigmoid colon Peritoneal cyst Description of Procedure The patient was taken to the operating room where general endotracheal anesthesia was administered. She was prepared and draped in the usual sterile fashion in the dorsal supine position. The bladder was drained with a valencia catheter. An infraumbilical skin incision was made with a scalpel. The abdomen was tented and a 5 millimeter bladeless trocar trocar was advanced under direct laparoscopic visualization. Pneumoperitoneum was administered using carbon dioxide gas. A survey of the pelvis and abdomen yielded the findings noted above. A second 5 mm incision was made in the left lower quadrant and a 5 mm bladeless trocar was advanced under direct visualization. Due to dense adhesions, the decision was made to convert to open laparotomy. She was given 2 g Ancef IV. The trocar was withdrawn and the gas was allowed to escape. The Pfannenstiel skin incision was made with the scalpel and was carried through to the underlying layer of the fascia. The fascia was incised in the midline and incision was centered laterally. The fascia was dissected free of the underlying rectus muscles. The rectus muscles were in midline. The peritoneum was tented and entered sharply. The incision was tented superiorly and inferiorly with good visualization of the bladder. On the pelvis was explored, and dense adhesive disease was noted. The dominant mass was in the central abdomen. As this was gradually freed up, it became clear that this was inflamed bowel. General surgery consultation was obtained. Please see Dr. Davila's note which will be dictated under a separate cover. Once the inflamed sigmoid colon had been excised, the bilateral ovaries were able to be identified and dissected free of dense adhesive tissue. The infundibulopelvic ligaments on both sides were clamped, transected and ligated using LigaSure. Both ovaries were passed off the field and sent to pathology. Ureters were visualized bilaterally. Hemostasis was excellent. After the fascia and skin incision had been reapproximated, the laparoscopic port sites were were reapproximated using 4-0 Vicryl in interrupted subcuticular fashion. Dermaflex was applied externally. Sponge, lap, needle and instrument counts were correct. The patient was awakened and taken to recovery in stable condition. Additionally, the patient received 2 units PRBC intraoperatively. Implants None Estimated Blood Loss 1,200 Drains Yes (valencia, SOLOMON drain) Packing No Pathology yes (Bilateral ovaries, peritoneal cyst, proximal and distal sigmoid colon) Complications None Condition stable Disposition PACU
[2021-03-26] MEDS: LABETALOL HCL INJ 100 MG/20 ML VIAL IV PUSH ×2 (18:16→18:25)
--- NOTE | 2021-03-26 18:41 | PM.CNGS ---
Assessment and Plan Assessment and plan (1) Pelvic inflammation in female: Code(s): N73.9 - Female pelvic inflammatory disease, unspecified Status: Chronic Assessment and Plan: Severe pelvic inflammatory condition of none known etiology. Will proceed with laparotomy and possibly colon resection with Dr. Ac. Please refer to operative report. (2) Ovarian cyst: Code(s): N83.209 - Unspecified ovarian cyst, unspecified side Status: Chronic (3) Chronic inflammation of colon: Code(s): K52.9 - Noninfective gastroenteritis and colitis, unspecified Status: Chronic (4) Abdominal pain: Qualifiers: Abdominal location: lower abdomen, unspecified Qualified Code(s): R10.30 - Lower abdominal pain, unspecified Code(s): R10.9 - Unspecified abdominal pain Status: Chronic History of Present Illness Consult details Consult date: 03/26/21 Requesting physician: Ruben Ac MD Narrative: Patient was asleep on the operating table. She had attempted laparoscopic bilateral oophorectomy for ovarian cysts and chronic pelvic pain. It was noted there was an intense inflammatory reaction and the laparoscopic procedure had to be converted to open. There was concern about us sigmoid colon injury. I was called to the operating room to evaluate and proceed with surgery as deemed necessary. History and physical exam as per Dr. Ac's documents. Please refer to my operative report for exam findings. [facility] Past Medical History Medical History (Updated 03/26/21 @ 18:46 by Otilio Davila MD) Abdominal pain Anxiety Depression Fibroid uterus Lymphangioleiomyomatosis Menometrorrhagia Ovarian cyst Pneumothorax 67% LUNG FUNCTION, PNEUMOTHORAX R LUNG X1, L LUNG X2, CHEST TUBE X3 Surgical History Surgical History History of bilateral salpingectomy History of chest tube placement History of ovarian cystectomy History of total vaginal hysterectomy (TVH) History of tubal ligation Family History Family History Other Cerebrovascular accident Hypertension Malignant neoplasm of prostate Social History Social History Years smoked: 5 Smoking status: Former smoker Tobacco type: cigarettes Smoking end date: 10/11/12 Additional smoking assessment comments: QUIT 2014 Alcohol intake: never Substance use: current Substance use type: marijuana Other substance usage details: EDIBLE Last use: 03/10/21 Living arrangements: with family Spiritual care concerns: No Meds Home Medications and Allergies Home Medications Medication Instructions Recorded Confirmed Type sirolimus 2 mg PO DAILY 06/06/20 03/24/21 History venlafaxine 150 mg PO DAILY 03/22/21 03/26/21 History doxycycline hyclate 100 mg PO Q12HR 14 Days #28 tablet 03/23/21 03/26/21 Rx hydrocodone-acetaminophen 1 tablet PO Q4H PRN #28 tablet 03/23/21 03/26/21 Rx Allergies Allergy/AdvReac Type Severity Reaction Status Date / Time amoxicillin Allergy Intermediate Hives / Verified 03/26/21 12:23 Red Face Penicillins Allergy Mild RASH Verified 03/26/21 12:23 Vital Signs Vital Signs - 24 hr 03/26/21 11:30 03/26/21 18:07 03/26/21 18:15 Temperature 36.6 C 36.6 C Pulse Rate 79 108 H 98 Respiratory Rate 18 10 L 8 L Blood Pressure 145/86 H 168/111 H 154/111 H Pulse Oximetry 98 100 100 03/26/21 18:16 03/26/21 18:25 Temperature Pulse Rate 101 H 89 Respiratory Rate Blood Pressure Pulse Oximetry Results Labs Result diagrams: 03/26/21 16:43 Labs: Abnormal lab results 03/26/21 03/26/21 03/26/21 Range/Units 11:36 11:36 16:43 WBC 12.2 H (4.5-10.0) K/mm3 RBC 4.19 L (4.2-5.4) M/mm3 Hgb 10.8 L (12.0-15.0) g/dL Hct 34.7 L (37.0-47.0) % MCH 25.8 L D (26-34) pg
[2021-03-26] MEDS: fentaNYL CITRATE INJ (*CRX) 100 MCG/2 ML VIAL 25 MCG IV PUSH ×5 (18:43→19:29)
[2021-03-26] MEDS: ONDANSETRON INJ 4 MG/2 ML VIAL IV PUSH ×2 (18:44→20:52)
--- NOTE | 2021-03-26 18:47 | W.PM.PROC2 ---
Procedure Note - Detailed Date of Procedure 03/26/21 Pre-op Diagnosis Bilateral pelvic cyst, pelvic pain Post-op Diagnosis other (Severe pelvic inflammation with sigmoid colon involvement, pelvic pain, bilateral ovarian cysts) Procedure Performed Sigmoid colon resection with hand-sewn colorectal anastomosis. Surgeon Otilio Davila MD Medicaid Billing Specialist Ruben Ac M.D. Anesthesia general Indications Patient was taken to surgery for laparoscopic bilateral oophorectomy. At surgery she had a severe pelvic inflammatory condition causing all tissue planes to be obscured and dense inflammatory changes. Etiology of this is unclear. She was seen intraoperatively. Her sigmoid colon had a small opening in it. However the sigmoid colon was at least part of the inflammatory condition and possibly the origin of it. Findings Dense pelvic inflammation with involvement of the sigmoid colon and all associated pelvic structures including the properitoneal fat anteriorly. Adhesions of small bowel and colon. Extremely vascular inflammation with oozing of blood laterally with all dissection. This resulted in considerably more blood loss than usual and transfusion of 2 units packed cells during the surgery. Patient remained hemodynamically stable throughout the operation. Description of Procedure The patient was asleep on the operating room table. A small Pfannenstiel incision had been made and exploration was carried out. It was clear that there was a severe inflammatory process and that removal of the ovarian cysts would be literally Szat[place] possible unless a larger incision was made. Additionally there was possibly a small laceration of the sigmoid colon that had been directly under the incision. Thickened and cobblestoned retroperitoneal fat on the anterior aspect of the abdominal wall was noted as well. We extended the incision by converting it to a midline incision. It was extended up to the umbilicus cephalad and down to the pubic area caudad. The fascia was divided in each direction as well and the abdomen was opened more fully. We then further explored explored the abdomen. Self-retaining retractor was placed. Cautery was used for hemostasis. A couple of silk sutures were placed in the sigmoid colon to minimize any risk of spillage from this potential injury. Adhesions of small intestine in the right lower quadrant were taken down. Elevating the abdominal wall, I was able to dissect small-bowel adhesions and eventually find the descending colon. I followed this up to the area of the sigmoid colon. It did not appear to be the same area that we had seen initially. The adhesions were so dense and the peritoneum and other surfaces so thickened that it was nearly impossible to navigate without using blunt dissection. In exposing the sigmoid colon in trying to define the anatomy, an indurated friable area was divided with blunt dissection. Looking at this later it was not clear if this was bowel or part of the ovarian cyst on the left. Eventually exploring this it was suspected it may be an abrupt angulation associated with the inflammatory process of the sigmoid colon. This inflammation was preventing us from exposing and removing the pelvic ovarian cysts. Additionally, a sigmoid colon appeared to be quite diseased with inflammation as it came apart with very little dissection and this was in no way consistent with its normal condition. Thus the distal end of the sigmoid was dissected using the LigaSure. I was able to free up the upper rectum using LigaSure. The rectal mesentery bled much more than usual and had to be controlled with cautery. Some additional LigaSure was used as well as the original LigaSure did not maintain hemostasis as it usually does. Eventually I freed up the upper rectum and distal sigmoid. I used the contour stapler and divided the sigmoid from the upper rectum. This bit of distal sigmoid was then passed off as a specimen. I then diss
[2021-03-26] MEDS: HYDROmorphone HCL INJ (*CRX) 1 MG/ML SYR 0.25 MG IV PUSH ×4 (18:58→19:14)
--- NOTE | 2021-03-26 20:20 | ADMGEN ---
This patient, Liz Petersen, was admitted to -. Patient/family oriented to hospital policies and general routines including ID bracelet, bed and alarms, visiting hours, pain management, procedures, bathroom and other care routines, personal items, smoking policy, room service/diet, and visiting hours. Information on how to activate the Rapid Response Team has been discussed. Patient/Family are encouraged to report perceived risks to care and to ask questions if they do not understand what they are told or what they should do.
[2021-03-26] MEDS: LACTATED RINGERS 1,000 ML 125 ML IV CONT (20:38)
[2021-03-26] MEDS: MORPHINE SULFATE (*CRX) 4 MG/ML INJ IV PUSH (20:51)
[2021-03-26] MEDS: FAMOTIDINE 20 MG/2 ML VIAL IV PUSH (21:00)
[2021-03-26] MEDS: IBUPROFEN IV 800 MG/200 ML 800 MG/200 ML BAG 400 MG IVPB (23:05)
[2021-03-26] MEDS: MORPHINE SULFATE (*CRX) 2 MG/ML INJ IV PUSH (23:14)
[2021-03-27] VITALS (13 sets, daily range): BP systolic 120–145; BP diastolic 70–98; PULSE 84–103; RESP 12–20; TEMP 36.1–36.7; O2SAT 96–100
[2021-03-27] MEDS: ONDANSETRON INJ 4 MG/2 ML VIAL IV PUSH ×4 (01:31→11:00)
[2021-03-27] MEDS: MORPHINE SULFATE (*CRX) 2 MG/ML INJ IV PUSH ×3 (01:31→08:00)
[2021-03-27 04:52] LABS: Hematocrit 29.1 % (37.0-47.0); Hemoglobin 9.1 g/dL (12.0-15.0); Mean Corpuscular HGB Conc 31.3 g/dl (32-36); Mean Corpuscular Hemoglobin 25.7 pg (26-34); Mean Corpuscular Volume 82.2 fl (80-100); Mean Platelet Volume 10.5 fl (7.4-10.4); Platelet Count Result 258 k/mm3 (150-375); Red Blood Count 3.54 M/mm3 (4.2-5.4); Red Cell Distribution Width 18.5 % (11.5-14.5); White Blood Count 12.4 K/mm3 (4.5-10.0)
[2021-03-27] MEDS: ACETAMINOPHEN 500 MG TABLET PO ×2 (04:57→22:45)
[2021-03-27] MEDS: IBUPROFEN IV 800 MG/200 ML 800 MG/200 ML BAG 400 MG IVPB ×4 (04:58→23:38)
[2021-03-27 05:12] LABS: Anion Gap 7 mmol/L (8-16); Blood Urea Nitrogen 12 mg/dL (7-17); Calcium 7.6 mg/dL (8.4-10.2); Carbon Dioxide 27 mmol/L (22-30); Chloride 103 mmol/L (98-107); Estimated CRCL calculation 86 ml/min; Estimated Glomerular Filt Rate > 60; Glucose 152 mg/dL (65-105); Potassium 3.8 mmol/L (3.4-5.0); Sodium 137 mmol/L (137-145)
[2021-03-27] MEDS: LACTATED RINGERS 1,000 ML 125 ML IV CONT ×3 (05:36→22:46)
[2021-03-27] MEDS: MORPHINE SULFATE (*CRX) 4 MG/ML INJ IV PUSH ×2 (05:58→10:09)
--- NOTE | 2021-03-27 08:44 | WPDCNINT ---
Assessment and Plan Assessment and plan (1) Chronic inflammation of colon: Code(s): K52.9 - Noninfective gastroenteritis and colitis, unspecified Status: Chronic Assessment and Plan: Inflammation of sigmoid colon, status post excision of pelvic peritoneal cyst, lysis of adhesions, bilateral oophorectomy, excision of sigmoid colon with hand-sewn colorectal anastomosis on 03/26/2021 -continue pain control -surgery and OBGYN following the patient -will set up in chair -on clear liquid diet per surgery -the patient remains stable will transfer patient to surgical floor -continue to monitor urine output (2) Pelvic inflammation in female: Code(s): N73.9 - Female pelvic inflammatory disease, unspecified Status: Chronic Assessment and Plan: As above (3) Ovarian cyst: Code(s): N83.209 - Unspecified ovarian cyst, unspecified side Status: Chronic Assessment and Plan: As above (4) Abdominal pain: Qualifiers: Abdominal location: lower abdomen, unspecified Qualified Code(s): R10.30 - Lower abdominal pain, unspecified Code(s): R10.9 - Unspecified abdominal pain Status: Chronic Assessment and Plan: Continue pain control Additional Plan Discussed with patient updated her with her condition and plan of care. I answered questions Code status: Full code Critical care time spent: 41 minutes This dictation may have been done utilizing a voice recognition system. Attempts have been made to correct errors. However, there may be uncorrected grammatical, spelling, and recognition errors present. Due to a high probability of clinically significant, life threatening deterioration, the patient required my highest level of preparedness to intervene emergently and I personally spent this critical care time directly and personally managing the patient. This critical care time included obtaining a history; examining the patient; pulse oximetry; ordering and review of studies; arranging urgent treatment with development of a management plan; evaluation of patient's response to treatment; frequent reassessment; and discussions with other providers. It was exclusive of separately billable procedures and treating other patients and teaching time. Please see Assessment and Plan section and the rest of the note for further information on patient assessment and treatment Buhr Dresser Consult Note Consult date: 03/27/21 Time Seen: 07:09 Reason for consult: Inflammation of sigmoid colon, status post excision of pelvic peritoneal cyst, lysis of adhesions, bilateral oophorectomy, excision of sigmoid colon with hand-sewn colorectal anastomosis on 03/26/2021 HPI: Liz Petersen is a 40 year old female depression, anxiety, lymphangioleiomyomatosis, history of spontaneous pneumothoraces presented the ED on 03/22/2021 with complains of worsening abdominal/pelvic pain. Patient was admitted to [facility] in [place] for possible pelvic inflammation, was on IV antibiotics and discharged home for suspected tubo ovarian abscess. Of hysterectomy and bilateral salpingectomies in 2019. On 03/26/2021 she underwent excision of pelvic peritoneal cyst, lysis of adhesions, bilateral oophorectomy, excision of sigmoid colon with hand-sewn colorectal anastomosis. Discussed with anesthesiologist, patient received 5 L of crystalloids, 2 units of packed RBCs too EBL of 1200 mL. Patient had been hemodynamically stable postoperatively, extubated. Patient was transferred to the ICU for observation. Patient seen and examined this morning, complains of abdominal pain 4/10 in intensity. Denies any shortness of breath, nausea, vomiting. She has not been passing any gas. Patient is afebrile, hemodynamically stable, but has been adequate. Review of Systems Review of Systems: All systems reviewed & are unremarkable except as noted in HPI and below PMFSH Past Medical History Medical History (Updated
--- NOTE | 2021-03-27 08:45 | PM.GYNPNOP ---
PRINT PRODUCTION COORDINATOR - A/P Postoperative Procedures: Procedures Operation Date: 03/26/21 13:00 Actual Procedure Side Surgeon p Diagnostic Laparoscopy converted to Open Laparotomy,Bilateral Oophorectomy,Excision Peritoneal Cyst,Lysis of Adhesions Not Applicable Ruben Ac MD s Proximal and Distal Sigmoidectomy with Hand Sewn Anastamosis Not Applicable Otilio Davila MD A: POD#1, doing well. Extubated, good pain control. P: Plan to advance diet per Dr. Davila's instruction. Plan to move out of ICU per oil field equipment mechanic supervisor's instruction. I reviewed the operative course with the patient in detail today, including the rationale behind our conversion to laparotomy, our concern for possible laceration to the sigmoid colon, findings of inflammation and adhesions, and the rationale behind the excision of the inflamed portion of the sigmoid colon. She understands and has asked appropriate questions. Appreciate consultations from general surgery, oil field equipment mechanic supervisor and anesthesia. Time Spent With Patient Time with patient: 15 - 25 minutes PRINT PRODUCTION COORDINATOR- PN:Subj Post-Op Subjective Date/time seen: 03/27/21 12:39 Interval history: Pain OK. Tolerated clear liquids. Review of Systems Review of Systems: All systems reviewed & are unremarkable except as noted in HPI and below Exam Narrative: Exam Narrative: AVSS I/O OK ABD soft, appropriately tender. Bandage dry. EXT nontender PRINT PRODUCTION COORDINATOR - PN: Obj Data Vital Signs Vital Signs: Vital Signs - 24 hr 03/26/21 18:07 03/26/21 18:15 03/26/21 18:16 Temperature 36.6 C Pulse Rate 108 H 98 101 H Respiratory Rate 10 L 8 L Blood Pressure 168/111 H 154/111 H Pulse Oximetry 100 100 03/26/21 18:25 03/26/21 18:30 03/26/21 18:45 Temperature Pulse Rate 89 83 93 Respiratory Rate 8 L 14 Blood Pressure 151/109 H 146/101 H Pulse Oximetry 100 100 03/26/21 19:00 03/26/21 19:15 03/26/21 19:30 Temperature Pulse Rate 91 97 80 Respiratory Rate 12 17 12 Blood Pressure 143/97 H 122/87 124/77 Pulse Oximetry 100 100 100 03/26/21 19:45 03/26/21 19:58 03/26/21 20:17 Temperature Pulse Rate 83 86 106 H Respiratory Rate 12 19 Blood Pressure 125/83 119/90 Pulse Oximetry 100 100 03/26/21 20:22 03/26/21 21:14 03/26/21 22:00 Temperature 36.5 C Pulse Rate 91 86 Respiratory Rate 12 12 Blood Pressure 135/105 H 149/100 H Pulse Oximetry 100 100 99 03/27/21 00:00 03/27/21 01:45 03/27/21 02:00 Temperature 36.5 C Pulse Rate 84 88 Respiratory Rate 12 12 Blood Pressure 132/88 135/88 Pulse Oximetry 99 97 98 03/27/21 04:00 03/27/21 06:00 03/27/21 08:00 Temperature 36.4 C 36.1 C L Pulse Rate 97 94 96 Respiratory Rate 14 15 18 Blood Pressure 145/98 H 143/91 H 139/92 H Pulse Oximetry 100 98 100 03/27/21 08:21 03/27/21 09:13 03/27/21 10:00 Temperature Pulse Rate 103 H Respiratory Rate 15 Blood Pressure Pulse Oximetry 100 98 99 Intake/Output Intake/Output: Intake & Output 03/24/21 03/25/21 03/26/21 03/27/21 23:59 23:59 23:59 23:59 Intake Total 6200 2450 Output Total 185 385 Balance 6015 2065 Meds/Results Medications: Active Medications Generic Name Dose Route Start Last Admin Trade Name Freq PRN Reason Stop Dose Admin Acetaminophen 500 mg 03/26/21 19:41 03/27/21 04:57 Acetaminophen 500 Mg Tablet PO 500 mg Q6H PRN Administration Mild Pain (1-3) or Fever Alvimopan 12 mg 03/27/21 21:00 Alvimopan 12 Mg Capsule PO 04/03/21 21:01 Q12HR LETTY Enoxaparin Sodium 40 mg 03/27/21 09:00 03/27/21 09:10 Enoxaparin 40 Mg/0.4 Ml Syringe SUB-Q 40 mg DAILY LETTY Administration Famotidine 20 mg 03/26/21 21:00 03/27/21 09:10 Famotidine 20 Mg/2 Ml Vial IV PUSH 20 mg Q12HR LETTY Administration Hydromorphone HCl 0.5 mg 03/27/21 11:59 03/27/21 12:20 Hydromorphone Hcl Inj (*Crx) 1 Mg/Ml Syr IV PUSH 03/29/21 12:00 0.5 mg Q3H PRN Administration Pain Rated 7-10 Lactated Ringer's 1,000 mls @ 125 mls/hr 03/11
[2021-03-27] MEDS: ENOXAPARIN 40 MG/0.4 ML SYRINGE SUB-Q (09:10)
[2021-03-27] MEDS: FAMOTIDINE 20 MG/2 ML VIAL IV PUSH ×2 (09:10→20:58)
--- NOTE | 2021-03-27 10:33 | WPDANESPN ---
Anes - Prog Note Post-Op Date/Time: 03/27/21 10:33 Cardiovascular status: normal Respiratory status: normal Airway patency: baseline Mental status: baseline Post-Op hydration status: normal Vital Signs: Last Vital Signs Temp 36.1 C L 03/27/21 08:00 Pulse 100 03/27/21 08:00 Resp 18 03/27/21 08:00 BP 139/92 H 03/27/21 08:00 Pulse Ox 98 03/27/21 09:13 Pain Score (VAS): 0/10. Patient resting up to chair at time of assessment, appears comfortable. RN at bedside. I/O: Intake & Output 03/26/21 03/27/21 03/27/21 23:59 07:59 15:59 Intake Total 6200 1800 Output Total 185 325 60 Balance 6015 1475 -60 Laboratory Tests 03/27/21 04:18 03/27/21 04:18 03/26/21 03/26/21 03/26/21 11:36 11:36 16:43 WBC 12.2 H RBC 4.19 L Hgb 10.8 L Hct 34.7 L MCV 82.8 D MCH 25.8 L D MCHC 31.1 L RDW 18.8 H Plt Count 194 MPV 10.0 PT 14.0 INR 1.0 APTT 46.0 H Sodium Potassium Chloride Carbon Dioxide Anion Gap BUN Creatinine Estim Creat Clear Calc Estimated GFR Glucose Calcium Blood Type O Positive Antibody Screen Negative Crossmatch See Detail 03/26/21 03/27/21 03/27/21 16:43 04:18 04:18 WBC 12.4 H RBC 3.54 L Hgb 9.1 L Hct 29.1 L MCV 82.2 MCH 25.7 L MCHC 31.3 L RDW 18.5 H Plt Count 258 MPV 10.5 H PT 15.8 H INR 1.2 APTT 38.4 H Sodium 137 Potassium 3.8 Chloride 103 Carbon Dioxide 27 Anion Gap 7 L BUN 12 Creatinine 0.80 Estim Creat Clear Calc 86 Estimated GFR > 60 Glucose 152 H Calcium 7.6 L Blood Type Antibody Screen Crossmatch Post-procedural complaints: none Patient Feedback: Patient satisfied with anesthetic care.
[2021-03-27] MEDS: HYDROmorphone HCL INJ (*CRX) 1 MG/ML SYR 0.5 MG IV PUSH ×3 (12:20→20:58)
--- NOTE | 2021-03-27 16:21 | PM.PNGS ---
Progress Note: A&P Assessment and Plan (1) Chronic inflammation of colon: Code(s): K52.9 - Noninfective gastroenteritis and colitis, unspecified Status: Chronic Assessment and Plan: sigmoidectomy and anastomosis performed yesterday. This was explained to the patient's immediately after the surgery and again to the patient this morning. Continue clear liquids for now. She may be up in a chair. Okay to transfer out of the intensive care unit if okay with digital photo printer Dr. Swift. Will obtain records from [facility] and [facility] to better understand the abdominal infection she was being treated for 3 weeks ago. This is likely the source of the tremendous inflammatory response and dense adhesions we encountered at surgery yesterday. Continue Oh catheter and SOLOMON drain for now. (2) Pelvic inflammation in female: Code(s): N73.9 - Female pelvic inflammatory disease, unspecified Status: Chronic (3) Ovarian cyst: Code(s): N83.209 - Unspecified ovarian cyst, unspecified side Status: Chronic Assessment and Plan: Bilateral oophorectomy with removal cysts performed at surgery yesterday. 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 Subjective Subjective Date/Time Seen: 03/27/21 07:51 Post Op day: 1 Patient reports: no new complaints, feels better, afebrile and other ( No nausea or vomiting this morning.) Interval history: I discussed with the patient the nature of the operative findings. I discussed with her the diseased sigmoid colon and the need for removal. I discussed that it was reanastomosed. I discussed the severe pelvic inflammation that was found at surgery. I also related that she had considerable bleeding from the surgery and had received 2 units of packed red blood cells. I discussed with the patient her use of the medication Sirolimus. She related that she had not been taking this for about 3 weeks. The reason for this was that she was in [facility] in [facility] being treated for an abdominal infection about 3 weeks ago. She does not know the diagnosis but thinks it had to do with an ovarian cyst. We were unaware of any of this at the time of her surgery yesterday. 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 Asad Avitia, a egg sorter at [facility]. She is prone to spontaneous pneumothoraces. Gastrointestinal: Gastrointestinal: Reports as per HPI, Denies bloating, Denies nausea and Denies vomiting Neurologic: Denies confusion and Denies headache(s) Exam Const: General: comfortable and no acute distress; No confusion Orientation/consciousness: patient oriented x3 and No confusion GI: Inspection: non-distended and incision ( Dressings dry and intact, serosanguineous fluid per SOLOMON drain) GI Palp: Yes Soft to palpation, Yes Tenderness to palpation present (GI), No Guarding due to palpation present (GI) and No Rebound tenderness present Neuro: General: patient oriented x3, no focal motor deficits and No confusion Extrem: General: no calf tenderness and no edema Psych: Affect: normal affect Insight: Good insight present (Psych) Judgement: Good judgement present (Psych) Objective Data Vital Signs Vital Signs: Vital Signs - 24 hr 03/26/21 18:07 03/26/21 18:15 03/26/21 18:16 Temperature 36.6 C Pulse Rate 108 H 98 101 H Respiratory Rate 10 L 8 L Blood Pressure 168/111 H 154/111 H
[2021-03-27] MEDS: VENLAFAXINE HCL XR 75 MG CAP.ER.24H 150 MG PO (20:58)
[2021-03-27] MEDS: ALVIMOPAN 12 MG CAPSULE PO (20:58)
[2021-03-28 04:55] LABS: Basophils Percent Auto 0.3 % (0.2-1.2); Eosinophils Absolute Auto 0.2 K/mm3 (0-0.3); Eosinophils Percent Auto 2.4 % (0-4.4); Hematocrit 23.6 % (37.0-47.0); Hemoglobin 7.5 g/dL (12.0-15.0); Immature Granulocyte Absolute 0.05 K/mm3 (0.00-0.031); Immature Granulocyte Percent A 0.6 % (0-0.5); Lymphocytes Absolute Auto 1.44 K/mm3 (0.9-3.2); Lymphocytes Percent Auto 18.2 % (18.3-44.2); Mean Corpuscular HGB Conc 31.8 g/dl (32-36); Mean Corpuscular Hemoglobin 25.4 pg (26-34); Mean Platelet Volume 10.3 fl (7.4-10.4); Monocytes Absolute Auto 0.7 K/mm3 (0.1-0.6); Monocytes Percent Auto 8.8 % (2.6-8.5); Neutrophils Absolute Auto 5.5 K/mm3 (1.3-6.7); Neutrophils Percent Auto 69.7 % (45.5-73.1); Platelet Count Result 261 k/mm3 (150-375); Red Blood Count 2.95 M/mm3 (4.2-5.4); White Blood Count 7.9 K/mm3 (4.5-10.0)
[2021-03-28 05:04] LABS: Anion Gap 3 mmol/L (8-16); Blood Urea Nitrogen 8 mg/dL (7-17); Calcium 7.5 mg/dL (8.4-10.2); Carbon Dioxide 31 mmol/L (22-30); Chloride 104 mmol/L (98-107); Estimated CRCL calculation 76 ml/min; Estimated Glomerular Filt Rate > 60; Glucose 82 mg/dL (65-105); Magnesium 1.8 mg/dL (1.6-2.3); Phosphorus 2.2 mg/dL (2.5-4.5); Sodium 138 mmol/L (137-145)
[2021-03-28] MEDS: IBUPROFEN IV 800 MG/200 ML 800 MG/200 ML BAG 400 MG IVPB ×3 (05:14→18:08)
[2021-03-28] MEDS: LACTATED RINGERS 1,000 ML 125 ML IV CONT (05:16)
[2021-03-28 08:00] VITALS: BP 144/91; PULSE 97; RESP 16; TEMP 36.6; O2SAT 98
--- NOTE | 2021-03-28 08:29 | PM.PNGS ---
Progress Note: A&P Assessment and Plan (1) Pelvic inflammation in female: Code(s): N73.9 - Female pelvic inflammatory disease, unspecified Status: Chronic (2) Chronic inflammation of colon: Code(s): K52.9 - Noninfective gastroenteritis and colitis, unspecified Status: Chronic Assessment and Plan: doing well. DC Oh and ambulate. Start daily dressing changes. Supplement potassium which was low today. Watch H&H. Advance diet. Pathology is pending on sigmoid colon resection and bilateral oophorectomy. 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 - Lymphangioleiomyomatosis Status: Acute Subjective Subjective Date/Time Seen: 03/28/21 08:29 Post Op day: 2 Patient reports: no new complaints, feels better, pain is less, no flatus and no bowel movement Exam Const: General: comfortable and no acute distress; No confusion Orientation/consciousness: patient oriented x3 and No confusion GI: Inspection: Abdominal wall edema, non-distended, incision ( Drainage at central portion of incision but otherwise looks very good.) and other ( Serosanguineous fluid per SOLOMON drain) GI Palp: Yes Soft to palpation, Yes Tenderness to palpation present (GI), No Guarding due to palpation present (GI) and No Rebound tenderness present Auscultation: normal bowel sounds Neuro: General: patient oriented x3, no focal motor deficits and No confusion Extrem: General: no calf tenderness and no edema Psych: Affect: normal affect Insight: Good insight present (Psych) Judgement: Good judgement present (Psych) Objective Data Vital Signs Vital Signs: Vital Signs - 24 hr 03/27/21 09:13 03/27/21 10:00 03/27/21 16:00 Temperature 36.6 C Pulse Rate 103 H 86 Respiratory Rate 15 12 Blood Pressure 141/79 H Pulse Oximetry 98 99 99 03/27/21 20:00 03/27/21 20:40 03/27/21 23:54 Temperature 36.7 C 36.2 C L Pulse Rate 84 84 98 Respiratory Rate 20 20 16 Blood Pressure 120/76 126/70 Pulse Oximetry 97 97 96 Intake/Output Intake/Output: Intake & Output 06/1503/26/21 03/27/21 03/28/21 23:59 23:59 23:59 23:59 Intake Total 6200 5100 1200 Output Total 185 2550 950 Balance 6015 2550 250 Meds/Results Medications: Active Medications Generic Name Dose Route Start Last Admin Trade Name Freq PRN Reason Stop Dose Admin Acetaminophen 500 mg 03/26/21 19:41 03/27/21 22:45 Acetaminophen 500 Mg Tablet PO 500 mg Q6H PRN Administration Mild Pain (1-3) or Fever Acetaminophen 500 mg 03/28/21 08:26 Acetaminophen 500 Mg Tablet PO Q6H PRN Mild Pain (1-3) or Fever Hydrocodone Bitart/Acetaminophen 1 tab 03/28/21 08:26 Hydrocodone/Acetaminophen (*Crx) 5-325 Mg Tablet PO Q4H PRN Pain Rated 4-6 Hydrocodone Bitart/Acetaminophen 1 tab 03/28/21 08:26 Hydrocodone/Acetaminophen (*Crx) 10-325 Mg Tablet PO Q6H PRN Pain Rated 7-10 Alvimopan 12 mg 03/27/21 21:00 03/27/21 20:58 Alvimopan 12 Mg Capsule PO 04/03/21 21:01 12 mg Q12HR LETTY Administration Enoxaparin Sodium 40 mg 03/27/21 09:00 03/27/21 09:10 Enoxaparin 40 Mg/0.4 Ml Syringe SUB-Q 40 mg DAILY LETTY Administration Famotidine 20 mg 03/28/21 09:00 Famotidine 20 Mg Tablet PO Q12HR LETTY Hydromorphone HCl 0.5 mg 03/27/21 11:59 03/27/21 20:58 Hydromorphone Hcl Inj (*Crx) 1 Mg/Ml Syr IV PUSH 03/29/21 12:00 0.5 mg Q3H PRN Administration Pain Rated 7-10 Lactated Ringer's 1,000 mls @ 125 mls/hr 03/26/21 19:41 03/28/21 05:16 Lr - Lactated Ringers Iv IV CONT 125 mls/hr .Q8H LETTY Administration Ibuprofen 800 mg in 200 mls @ 400 mls/hr 03/27/21 00:00 03/28/21 05:14 Caldolor 800 Mg/200 Ml IVPB 400 mls/hr Q6HR LETTY Administration Naloxone HCl 0.1 mg 03/26/21 19:41 Naloxone Hcl 0.4 Mg/Ml Vial IV PUSH Q2M PRN
[2021-03-28] MEDS: ALVIMOPAN 12 MG CAPSULE PO ×2 (09:02→21:26)
[2021-03-28] MEDS: ENOXAPARIN 40 MG/0.4 ML SYRINGE SUB-Q (09:02)
[2021-03-28] MEDS: HYDROcodone/acetaminophen (*CRX) 5-325 MG TABLET 1 TAB PO ×2 (09:03→13:19)
[2021-03-28] MEDS: VENLAFAXINE HCL XR 75 MG CAP.ER.24H 150 MG PO (09:03)
[2021-03-28] MEDS: FAMOTIDINE 20 MG TABLET PO ×2 (09:21→21:26)
[2021-03-28] MEDS: POTASSIUM CHLORIDE 20 MEQ PACKET (FOR LIQUID) 40 MEQ PO ×2 (09:22→17:05)
[2021-03-28] MEDS: ONDANSETRON INJ 4 MG/2 ML VIAL IV PUSH (09:48)
[2021-03-28] MEDS: LORazepam INJ (*CRX) 2 MG/ML VIAL 0.5 MG IV PUSH ×2 (12:51→21:35)
--- NOTE | 2021-03-28 13:30 | PC.NURSE ---
This patient, Liz Petersen, was transferred to [[id number]] on 03/28/21 at 1330. Personal belongings sent with patient. Report given to [SANCHEZ IRBY]. Appropriate documentation sent with patient.
--- NOTE | 2021-03-28 13:39 | PC.NURSE ---
Patient transferred from ICU[address] [place] [address] at 1335.
[2021-03-28 14:00] VITALS: BP 130/86; PULSE 97; RESP 16; TEMP 36.9; O2SAT 98
--- NOTE | 2021-03-28 18:30 | PM.GYNPNOP ---
NYLON HOT WIRE CUTTER - A/P Postoperative Procedures: Procedures Operation Date: 03/26/21 13:00 Actual Procedure Side Surgeon p Diagnostic Laparoscopy converted to Open Laparotomy,Bilateral Oophorectomy,Excision Peritoneal Cyst,Lysis of Adhesions Not Applicable Ruben Ac MD s Proximal and Distal Sigmoidectomy with Hand Sewn Anastamosis Not Applicable Otilio Davila MD A: POD#2, doing well. P: Increase dose of [place]. Continue to follow. Appreciate Dr. Davial's input! Time Spent With Patient Time with patient: less than 15 minutes NYLON HOT WIRE CUTTER- PN:Subj Post-Op Subjective Date/time seen: 03/28/21 18:30 Interval history: Says pain has been bothering her. Tolerating full liquids. Some flatus, no bm yet. Exam Narrative: Exam Narrative: AVSS I/O OK ABD soft, nontender, fundus firm. Bandage dry. EXT nontender NYLON HOT WIRE CUTTER - PN: Obj Data Vital Signs Vital Signs: Vital Signs - 24 hr 03/27/21 20:00 03/27/21 20:40 03/27/21 23:54 Temperature 36.7 C 36.2 C L Pulse Rate 84 84 98 Respiratory Rate 20 20 16 Blood Pressure 120/76 126/70 Pulse Oximetry 97 97 96 03/28/21 08:00 03/28/21 14:00 Temperature 36.6 C 36.9 C Pulse Rate 97 97 Respiratory Rate 16 16 Blood Pressure 144/91 H 130/86 Pulse Oximetry 98 98 Intake/Output Intake/Output: Intake & Output 03/25/21 03/26/21 03/27/21 03/28/21 23:59 23:59 23:59 23:59 Intake Total 6200 5100 1750 Output Total 185 2550 2130 Balance 6015 2550 -380 Meds/Results Medications: Active Medications Generic Name Dose Route Start Last Admin Trade Name Freq PRN Reason Stop Dose Admin Acetaminophen 500 mg 03/26/21 19:41 03/27/21 22:45 Acetaminophen 500 Mg Tablet PO 500 mg Q6H PRN Administration Mild Pain (1-3) or Fever Hydrocodone Bitart/Acetaminophen 1 tab 03/28/21 08:26 03/28/21 13:19 Hydrocodone/Acetaminophen (*Crx) 5-325 Mg Tablet PO 1 tab Q4H PRN Administration Pain Rated 4-6 Hydrocodone Bitart/Acetaminophen 1 tab 03/28/21 08:26 Hydrocodone/Acetaminophen (*Crx) 10-325 Mg Tablet PO Q6H PRN Pain Rated 7-10 Alvimopan 12 mg 03/27/21 21:00 03/28/21 09:02 Alvimopan 12 Mg Capsule PO 04/03/21 21:01 12 mg Q12HR LETTY Administration Enoxaparin Sodium 40 mg 03/27/21 09:00 03/28/21 09:02 Enoxaparin 40 Mg/0.4 Ml Syringe SUB-Q 40 mg DAILY LETTY Administration Famotidine 20 mg 03/28/21 09:00 03/28/21 09:21 Famotidine 20 Mg Tablet PO 20 mg Q12HR LETTY Administration Ibuprofen 800 mg in 200 mls @ 400 mls/hr 03/27/21 00:00 03/28/21 18:08 Caldolor 800 Mg/200 Ml IVPB 400 mls/hr Q6HR LETTY Administration Lorazepam 0.5 mg 03/28/21 12:27 03/28/21 12:51 Lorazepam Inj (*Crx) 2 Mg/Ml Vial IV PUSH 0.5 mg Q6H PRN Administration Anxiety Naloxone HCl 0.1 mg 03/26/21 19:41 Naloxone Hcl 0.4 Mg/Ml Vial IV PUSH Q2M PRN Opiate Reversal Ondansetron HCl 4 mg 03/26/21 19:41 03/28/21 09:48 Ondansetron Inj 4 Mg/2 Ml Vial IV PUSH 4 mg Q4H PRN Administration Nausea And Vomiting Potassium Chloride 40 meq 03/28/21 09:00 03/28/21 17:05 Potassium Chloride 20 Meq Packet (For Liquid) PO 40 meq BIDWM LETTY Administration Venlafaxine HCl 150 mg 03/27/21 21:00 03/28/21 09:03 Venlafaxine Hcl Xr 75 Mg Cap.Er.24h PO 150 mg DAILY LETTY Administration Labs CBC & Chem 7: 03/28/21 04:25 03/28/21 04:25 Labs: Laboratory Results - last 24 hr 03/28/21 03/28/21 04:25 04:25 WBC 7.9 RBC 2.95 L Hgb 7.5 L Hct 23.6 L MCV 80.0 MCH 25.4 L MCHC 31.8 L RDW 19.0 H Plt Count 261 MPV 10.3 Immature Gran % (Auto) 0.6 H Neut % (Auto) 69.7 Lymph % (Auto) 18.2 L [place] % (Auto) 8.8 H Eos % (Auto) 2.4 Baso % (Auto) 0.3 Lymph # (Auto) 1.44 [place] # (Auto) 0.7 H Eos # (Auto) 0.2 Baso # (Auto) 0.0 Abs Immat Gran (auto) 0.05 H Absolute Neuts (auto) 5.5 Absolute Nucleated RBC 0.0 Nucleated RBC % 0.0 Sodium 1
[2021-03-28] MEDS: HYDROcodone/acetaminophen (*CRX) 7.5-325 MG TABLET 1 TAB PO (21:25)
[2021-03-28 22:00] VITALS: BP 113/44; PULSE 109; RESP 20; TEMP 36.6; O2SAT 97
[2021-03-29] MEDS: IBUPROFEN IV 800 MG/200 ML 800 MG/200 ML BAG 400 MG IVPB ×2 (01:17→05:56)
[2021-03-29 05:42] VITALS: BP 136/88; PULSE 94; RESP 20; TEMP 36.6; O2SAT 98
[2021-03-29 06:10] LABS: Hematocrit 24.1 % (37.0-47.0); Hemoglobin 7.6 g/dL (12.0-15.0); Mean Corpuscular HGB Conc 31.5 g/dl (32-36); Mean Corpuscular Hemoglobin 25.7 pg (26-34); Mean Corpuscular Volume 81.4 fl (80-100); Mean Platelet Volume 10.2 fl (7.4-10.4); Platelet Count Result 309 k/mm3 (150-375); Red Blood Count 2.96 M/mm3 (4.2-5.4); Red Cell Distribution Width 19.5 % (11.5-14.5); White Blood Count 7.6 K/mm3 (4.5-10.0)
[2021-03-29 06:23] LABS: Anion Gap 6 mmol/L (8-16); Blood Urea Nitrogen 5 mg/dL (7-17); Calcium 7.8 mg/dL (8.4-10.2); Carbon Dioxide 27 mmol/L (22-30); Chloride 104 mmol/L (98-107); Estimated CRCL calculation 85 ml/min; Estimated Glomerular Filt Rate > 60; Glucose 72 mg/dL (65-105); Potassium 3.2 mmol/L (3.4-5.0); Sodium 137 mmol/L (137-145)
[2021-03-29] MEDS: POTASSIUM CHLORIDE 20 MEQ PACKET (FOR LIQUID) 40 MEQ PO ×2 (07:59→17:31)
[2021-03-29] MEDS: FAMOTIDINE 20 MG TABLET PO (08:00)
[2021-03-29] MEDS: ENOXAPARIN 40 MG/0.4 ML SYRINGE SUB-Q (08:00)
[2021-03-29] MEDS: VENLAFAXINE HCL XR 75 MG CAP.ER.24H 150 MG PO (08:00)
[2021-03-29] MEDS: ALVIMOPAN 12 MG CAPSULE PO ×2 (08:00→22:10)
--- NOTE | 2021-03-29 09:21 | PM.GYNPNOP ---
OPERATIONS AND MAINTENANCE MANAGER - A/P Postoperative Procedures: Procedures Operation Date: 03/26/21 13:00 Actual Procedure Side Surgeon p Diagnostic Laparoscopy converted to Open Laparotomy,Bilateral Oophorectomy,Excision Peritoneal Cyst,Lysis of Adhesions Not Applicable Ruben Ac MD s Proximal and Distal Sigmoidectomy with Hand Sewn Anastamosis Not Applicable Otilio Davila MD A: POD#3, doing well. P: Switch from Pepcid to Protonix. Continue to advance diet per Dr. Davila's orders. Time Spent With Patient Time with patient: less than 15 minutes OPERATIONS AND MAINTENANCE MANAGER- PN:Subj Post-Op Subjective Date/time seen: 03/29/21 09:21 Interval history: Pain better. Passing flatus. No bm yet. Just got eggs for breakfast. Says the potassium powder gives her heartburn and the famotidine isn't helping much. Exam Narrative: Exam Narrative: AVSS I/O OK ABD soft, nontender. Bandage dry. EXT nontender OPERATIONS AND MAINTENANCE MANAGER - PN: Obj Data Vital Signs Vital Signs: Vital Signs - 24 hr 03/28/21 14:00 03/28/21 22:00 03/29/21 05:42 Temperature 36.9 C 36.6 C 36.6 C Pulse Rate 97 109 H 94 Respiratory Rate 16 20 20 Blood Pressure 130/86 113/44 L 136/88 Pulse Oximetry 98 97 98 Intake/Output Intake/Output: Intake & Output 03/26/21 03/27/21 03/28/21 03/29/21 23:59 23:59 23:59 23:59 Intake Total 6200 5100 2190 400 Output Total 185 2550 2130 90 Balance 6015 2550 60 310 Meds/Results Medications: Active Medications Generic Name Dose Route Start Last Admin Trade Name Freq PRN Reason Stop Dose Admin Acetaminophen 500 mg 03/26/21 19:41 03/27/21 22:45 Acetaminophen 500 Mg Tablet PO 500 mg Q6H PRN Administration Mild Pain (1-3) or Fever Hydrocodone Bitart/Acetaminophen 1 tab 03/28/21 18:33 03/28/21 21:25 Hydrocodone/Acetaminophen (*Crx) 7.5-325 Mg Tablet PO 1 tab Q4H PRN Administration Pain Rated 6 or Greater Alvimopan 12 mg 03/27/21 21:00 03/29/21 08:00 Alvimopan 12 Mg Capsule PO 04/03/21 21:01 12 mg Q12HR LETTY Administration Enoxaparin Sodium 40 mg 03/27/21 09:00 03/29/21 08:00 Enoxaparin 40 Mg/0.4 Ml Syringe SUB-Q 40 mg DAILY LETTY Administration Ibuprofen 800 mg in 200 mls @ 400 mls/hr 03/27/21 00:00 03/29/21 05:56 Caldolor 800 Mg/200 Ml IVPB 400 mls/hr Q6HR LETTY Administration Lorazepam 0.5 mg 03/28/21 12:27 03/28/21 21:35 Lorazepam Inj (*Crx) 2 Mg/Ml Vial IV PUSH 0.5 mg Q6H PRN Administration Anxiety Naloxone HCl 0.1 mg 03/26/21 19:41 Naloxone Hcl 0.4 Mg/Ml Vial IV PUSH Q2M PRN Opiate Reversal Ondansetron HCl 4 mg 03/26/21 19:41 03/28/21 09:48 Ondansetron Inj 4 Mg/2 Ml Vial IV PUSH 4 mg Q4H PRN Administration Nausea And Vomiting Pantoprazole Sodium 20 mg 03/29/21 09:20 Pantoprazole Sod Sesquihydrate 20 Mg Tab PO QAM LETTY Potassium Chloride 40 meq 03/28/21 09:00 03/29/21 07:59 Potassium Chloride 20 Meq Packet (For Liquid) PO 40 meq BIDWM LETTY Administration Venlafaxine HCl 150 mg 03/27/21 21:00 03/29/21 08:00 Venlafaxine Hcl Xr 75 Mg Cap.Er.24h PO 150 mg DAILY LETTY Administration Labs CBC & Chem 7: 03/29/21 05:45 03/29/21 05:45 Labs: Laboratory Results - last 24 hr 03/29/21 03/29/21 05:45 05:45 WBC 7.6 RBC 2.96 L Hgb 7.6 L Hct 24.1 L MCV 81.4 MCH 25.7 L MCHC 31.5 L RDW 19.5 H Plt Count 309 MPV 10.2 Sodium 137 Potassium 3.2 L Chloride 104 Carbon Dioxide 27 Anion Gap 6 L BUN 5 L Creatinine 0.80 Estim Creat Clear Calc 85 Estimated GFR > 60 Glucose 72 Calcium 7.8 L
[2021-03-29] MEDS: HYDROcodone/acetaminophen (*CRX) 7.5-325 MG TABLET 1 TAB PO ×3 (10:00→22:09)
[2021-03-29] MEDS: CALCIUM CARBONATE (TUMS) 500 MG (200 MG ELEMENTAL) PO (10:00)
[2021-03-29] MEDS: PANTOPRAZOLE SOD SESQUIHYDRATE 20 MG TAB PO (10:02)
--- NOTE | 2021-03-29 10:21 | PM.PNGS ---
Progress Note: A&P Assessment and Plan (1) Chronic inflammation of colon: Code(s): K52.9 - Noninfective gastroenteritis and colitis, unspecified Status: Chronic Assessment and Plan: doing well, cont SOLOMON, routine postop care, await path, encourage OOB/IS Subjective Subjective Date/Time Seen: 03/29/21 10:21 feels pretty good this am, leonie soft diet for breakfast, no BM but passing flatus Review of Systems Review of Systems: All systems reviewed & are unremarkable except as noted in HPI and below Exam Const: General: cooperative, comfortable and no acute distress Resp: Effort & Inspection: normal respiratory effort Auscultation: clear to auscultation bilaterally Cardio: Rate: regular rate Rhythm: regular rhythm GI: Inspection: normal to inspection, distended and incision GI Palp: Yes Soft to palpation, Yes Tenderness to palpation present (GI), No Guarding due to palpation present (GI) and No Rigid due to palpation Other: soft, sl dist, nolan TTP, incision C/D/I Objective Data Vital Signs Vital Signs: Vital Signs - 24 hr 03/28/21 14:00 03/28/21 22:00 03/29/21 05:42 Temperature 36.9 C 36.6 C 36.6 C Pulse Rate 97 109 H 94 Respiratory Rate 16 20 20 Blood Pressure 130/86 113/44 L 136/88 Pulse Oximetry 98 97 98 Intake/Output Intake/Output: Intake & Output 03/26/21 03/27/21 03/28/21 03/29/21 23:59 23:59 23:59 23:59 Intake Total 6200 5100 2190 640 Output Total 185 2550 2130 90 Balance 6015 2550 60 550 Meds/Results Medications: Active Medications Generic Name Dose Route Start Last Admin Trade Name Freq PRN Reason Stop Dose Admin Acetaminophen 500 mg 03/26/21 19:41 03/27/21 22:45 Acetaminophen 500 Mg Tablet PO 500 mg Q6H PRN Administration Mild Pain (1-3) or Fever Hydrocodone Bitart/Acetaminophen 1 tab 03/28/21 18:33 03/29/21 10:00 Hydrocodone/Acetaminophen (*Crx) 7.5-325 Mg Tablet PO 1 tab Q4H PRN Administration Pain Rated 6 or Greater Alvimopan 12 mg 03/27/21 21:00 03/29/21 08:00 Alvimopan 12 Mg Capsule PO 04/03/21 21:01 12 mg Q12HR LETTY Administration Calcium Carbonate 200 mg 03/29/21 09:25 03/29/21 10:00 Calcium Carbonate (Tums) 500 Mg (200 Mg Elemental) PO 200 mg Q6H PRN Administration Indigestion Enoxaparin Sodium 40 mg 03/27/21 09:00 03/29/21 08:00 Enoxaparin 40 Mg/0.4 Ml Syringe SUB-Q 40 mg DAILY LETTY Administration Ibuprofen 800 mg in 200 mls @ 400 mls/hr 03/27/21 00:00 03/29/21 05:56 Caldolor 800 Mg/200 Ml IVPB 400 mls/hr Q6HR LETTY Administration Lorazepam 0.5 mg 03/28/21 12:27 03/28/21 21:35 Lorazepam Inj (*Crx) 2 Mg/Ml Vial IV PUSH 0.5 mg Q6H PRN Administration Anxiety Naloxone HCl 0.1 mg 03/26/21 19:41 Naloxone Hcl 0.4 Mg/Ml Vial IV PUSH Q2M PRN Opiate Reversal Ondansetron HCl 4 mg 03/26/21 19:41 03/28/21 09:48 Ondansetron Inj 4 Mg/2 Ml Vial IV PUSH 4 mg Q4H PRN Administration Nausea And Vomiting Pantoprazole Sodium 20 mg 03/29/21 09:20 03/29/21 10:02 Pantoprazole Sod Sesquihydrate 20 Mg Tab PO 20 mg QAM LETTY Administration Potassium Chloride 40 meq 03/28/21 09:00 03/29/21 07:59 Potassium Chloride 20 Meq Packet (For Liquid) PO 40 meq BIDWM LETTY Administration Venlafaxine HCl 150 mg 03/27/21 21:00 03/29/21 08:00 Venlafaxine Hcl Xr 75 Mg Cap.Er.24h PO 150 mg DAILY LETTY Administration Labs Labs: Laboratory Results - last 24 hr 03/29/21 03/29/21 05:45 05:45 WBC 7.6 RBC 2.96 L Hgb 7.6 L Hct 24.1 L MCV 81.4 MCH 25.7 L MCHC 31.5 L RDW 19.5 H Plt Count 309 MPV 10.2 Sodium 137 Potassium 3.2 L Chloride 104 Carbon Dioxide 27 Anion Gap 6 L BUN 5 L Creatinine 0.80 Estim Creat Clear Calc 85 Estimated GFR > 60 Glucose 72 Calcium 7.8 L
[2021-03-29 14:00] VITALS: BP 146/87; PULSE 101; RESP 16; TEMP 37.2; O2SAT 100
[2021-03-29 22:00] VITALS: BP 151/92; PULSE 102; RESP 20; TEMP 37.4; O2SAT 97
[2021-03-29] MEDS: LORazepam (*CRX) 0.5 MG TABLET PO (22:09)
[2021-03-30 01:15] VITALS: O2SAT 97
[2021-03-30] MEDS: HYDROcodone/acetaminophen (*CRX) 7.5-325 MG TABLET 1 TAB PO ×4 (04:20→22:04)
[2021-03-30 06:00] VITALS: BP 149/100; PULSE 94; RESP 20; TEMP 36.8; O2SAT 95
[2021-03-30 06:10] LABS: Hematocrit 24.6 % (37.0-47.0); Hemoglobin 7.8 g/dL (12.0-15.0); Mean Corpuscular HGB Conc 31.7 g/dl (32-36); Mean Corpuscular Hemoglobin 25.2 pg (26-34); Mean Corpuscular Volume 79.6 fl (80-100); Mean Platelet Volume 10.3 fl (7.4-10.4); Platelet Count Result 357 k/mm3 (150-375); Red Blood Count 3.09 M/mm3 (4.2-5.4); Red Cell Distribution Width 19.5 % (11.5-14.5); White Blood Count 9.6 K/mm3 (4.5-10.0)
[2021-03-30 06:24] LABS: Anion Gap 7 mmol/L (8-16); Blood Urea Nitrogen 6 mg/dL (7-17); Calcium 7.8 mg/dL (8.4-10.2); Carbon Dioxide 26 mmol/L (22-30); Chloride 102 mmol/L (98-107); Estimated CRCL calculation 94 ml/min; Estimated Glomerular Filt Rate > 60; Glucose 91 mg/dL (65-105); Potassium 3.5 mmol/L (3.4-5.0); Sodium 135 mmol/L (137-145)
--- NOTE | 2021-03-30 07:12 | PM.GYNPNOP ---
ELECTRIC PLATER - A/P Postoperative Procedures: Procedures Operation Date: 03/26/21 13:00 Actual Procedure Side Surgeon p Diagnostic Laparoscopy converted to Open Laparotomy,Bilateral Oophorectomy,Excision Peritoneal Cyst,Lysis of Adhesions Not Applicable Ruben Ac MD s Proximal and Distal Sigmoidectomy with Hand Sewn Anastamosis Not Applicable Otilio Davila MD A: POD#4, showing continued improvement. P: Continue care per general surgery's instruction. Time Spent With Patient Time with patient: less than 15 minutes ELECTRIC PLATER- PN:Subj Post-Op Subjective Date/time seen: 03/30/21 07:12 Interval history: Pain better. Passing flatus. No bm yet. Exam Narrative: Exam Narrative: AVSS I/O OK ABD soft, nontender, fundus firm. Bandage dry. Serosanguineous drainage in SOLOMON. EXT nontender ELECTRIC PLATER - PN: Obj Data Vital Signs Vital Signs: Vital Signs - 24 hr 03/29/21 14:00 03/29/21 22:00 03/30/21 01:15 Temperature 37.2 C 37.4 C Pulse Rate 101 H 102 H Respiratory Rate 16 20 Blood Pressure 146/87 H 151/92 H Pulse Oximetry 100 97 97 03/30/21 06:00 Temperature 36.8 C Pulse Rate 94 Respiratory Rate 20 Blood Pressure 149/100 H Pulse Oximetry 95 Intake/Output Intake/Output: Intake & Output 03/27/21 03/28/21 03/29/21 03/30/21 23:59 23:59 23:59 23:59 Intake Total 5100 2190 1380 350 Output Total 2550 2130 160 40 Balance 2550 60 1220 310 Meds/Results Medications: Active Medications Generic Name Dose Route Start Last Admin Trade Name Freq PRN Reason Stop Dose Admin Acetaminophen 500 mg 03/26/21 19:41 03/27/21 22:45 Acetaminophen 500 Mg Tablet PO 500 mg Q6H PRN Administration Mild Pain (1-3) or Fever Hydrocodone Bitart/Acetaminophen 1 tab 03/28/21 18:33 03/30/21 04:20 Hydrocodone/Acetaminophen (*Crx) 7.5-325 Mg Tablet PO 1 tab Q4H PRN Administration Pain Rated 6 or Greater Alvimopan 12 mg 03/27/21 21:00 03/29/21 22:10 Alvimopan 12 Mg Capsule PO 04/03/21 21:01 12 mg Q12HR LETTY Administration Calcium Carbonate 200 mg 03/29/21 09:25 03/29/21 10:00 Calcium Carbonate (Tums) 500 Mg (200 Mg Elemental) PO 200 mg Q6H PRN Administration Indigestion Enoxaparin Sodium 40 mg 03/27/21 09:00 03/29/21 08:00 Enoxaparin 40 Mg/0.4 Ml Syringe SUB-Q 40 mg DAILY LETTY Administration Ibuprofen 600 mg 03/29/21 10:55 Ibuprofen 600 Mg Tablet PO Q6H PRN Pain Rated 1-3 Lorazepam 0.5 mg 03/29/21 10:56 03/29/21 22:09 Lorazepam (*Crx) 0.5 Mg Tablet PO 0.5 mg Q6H PRN Administration Anxiety Naloxone HCl 0.1 mg 03/26/21 19:41 Naloxone Hcl 0.4 Mg/Ml Vial IV PUSH Q2M PRN Opiate Reversal Ondansetron HCl 4 mg 03/29/21 10:57 Ondansetron Hcl Odt 4 Mg Tablet PO Q4H PRN Nausea And Vomiting Pantoprazole Sodium 20 mg 03/29/21 09:20 03/29/21 10:02 Pantoprazole Sod Sesquihydrate 20 Mg Tab PO 20 mg QAM LETTY Administration Potassium Chloride 40 meq 03/28/21 09:00 03/29/21 17:31 Potassium Chloride 20 Meq Packet (For Liquid) PO 40 meq BIDWM LETTY Administration Venlafaxine HCl 150 mg 03/27/21 21:00 03/29/21 08:00 Venlafaxine Hcl Xr 75 Mg Cap.Er.24h PO 150 mg DAILY LETTY Administration Labs CBC & Chem 7: 03/30/21 05:37 03/30/21 05:37 Labs: Laboratory Results - last 24 hr 03/30/21 03/30/21 05:37 05:37 WBC 9.6 RBC 3.09 L Hgb 7.8 L Hct 24.6 L MCV 79.6 L MCH 25.2 L MCHC 31.7 L RDW 19.5 H Plt Count 357 MPV 10.3 Sodium 135 L Potassium 3.5 Chloride 102 Carbon Dioxide 26 Anion Gap 7 L BUN 6 L Creatinine 0.70 Estim Creat Clear Calc 94 Estimated GFR > 60 Glucose 91 Calcium 7.8 L
--- NOTE | 2021-03-30 08:28 | PM.PNGS ---
Subjective Subjective Date/Time Seen: 03/30/21 08:28 feels a little better today, leonie diet, +flatus Review of Systems Review of Systems: All systems reviewed & are unremarkable except as noted in HPI and below Exam Const: General: cooperative, comfortable and no acute distress Resp: Auscultation: clear to auscultation bilaterally Cardio: Rate: regular rate Rhythm: regular rhythm GI: Inspection: normal to inspection, distended and incision GI Palp: Yes Soft to palpation and Yes Tenderness to palpation present (GI) Other: soft, sl dist, nolan TTP, incision C/D/I Objective Data Vital Signs Vital Signs: Vital Signs - 24 hr 03/29/21 14:00 03/29/21 22:00 03/30/21 01:15 Temperature 37.2 C 37.4 C Pulse Rate 101 H 102 H Respiratory Rate 16 20 Blood Pressure 146/87 H 151/92 H Pulse Oximetry 100 97 97 03/30/21 06:00 Temperature 36.8 C Pulse Rate 94 Respiratory Rate 20 Blood Pressure 149/100 H Pulse Oximetry 95 Intake/Output Intake/Output: Intake & Output 03/27/21 03/28/21 03/29/21 03/30/21 23:59 23:59 23:59 23:59 Intake Total 5100 2190 1620 350 Output Total 2550 2130 160 40 Balance 2550 60 1460 310 Meds/Results Medications: Active Medications Generic Name Dose Route Start Last Admin Trade Name Freq PRN Reason Stop Dose Admin Acetaminophen 500 mg 03/26/21 19:41 03/27/21 22:45 Acetaminophen 500 Mg Tablet PO 500 mg Q6H PRN Administration Mild Pain (1-3) or Fever Hydrocodone Bitart/Acetaminophen 1 tab 03/28/21 18:33 03/30/21 04:20 Hydrocodone/Acetaminophen (*Crx) 7.5-325 Mg Tablet PO 1 tab Q4H PRN Administration Pain Rated 6 or Greater Alvimopan 12 mg 03/27/21 21:00 03/29/21 22:10 Alvimopan 12 Mg Capsule PO 04/03/21 21:01 12 mg Q12HR LETTY Administration Calcium Carbonate 200 mg 03/29/21 09:25 03/29/21 10:00 Calcium Carbonate (Tums) 500 Mg (200 Mg Elemental) PO 200 mg Q6H PRN Administration Indigestion Enoxaparin Sodium 40 mg 03/27/21 09:00 03/29/21 08:00 Enoxaparin 40 Mg/0.4 Ml Syringe SUB-Q 40 mg DAILY LETTY Administration Ibuprofen 600 mg 03/29/21 10:55 Ibuprofen 600 Mg Tablet PO Q6H PRN Pain Rated 1-3 Lorazepam 0.5 mg 03/29/21 10:56 03/29/21 22:09 Lorazepam (*Crx) 0.5 Mg Tablet PO 0.5 mg Q6H PRN Administration Anxiety Naloxone HCl 0.1 mg 03/26/21 19:41 Naloxone Hcl 0.4 Mg/Ml Vial IV PUSH Q2M PRN Opiate Reversal Ondansetron HCl 4 mg 03/29/21 10:57 Ondansetron Hcl Odt 4 Mg Tablet PO Q4H PRN Nausea And Vomiting Pantoprazole Sodium 20 mg 03/29/21 09:20 03/29/21 10:02 Pantoprazole Sod Sesquihydrate 20 Mg Tab PO 20 mg QAM LETTY Administration Potassium Chloride 40 meq 03/28/21 09:00 03/29/21 17:31 Potassium Chloride 20 Meq Packet (For Liquid) PO 40 meq BIDWM LETTY Administration Venlafaxine HCl 150 mg 03/27/21 21:00 03/29/21 08:00 Venlafaxine Hcl Xr 75 Mg Cap.Er.24h PO 150 mg DAILY LETTY Administration Labs Labs: Laboratory Results - last 24 hr 03/30/21 03/30/21 05:37 05:37 WBC 9.6 RBC 3.09 L Hgb 7.8 L Hct 24.6 L MCV 79.6 L MCH 25.2 L MCHC 31.7 L RDW 19.5 H Plt Count 357 MPV 10.3 Sodium 135 L Potassium 3.5 Chloride 102 Carbon Dioxide 26 Anion Gap 7 L BUN 6 L Creatinine 0.70 Estim Creat Clear Calc 94 Estimated GFR > 60 Glucose 91 Calcium 7.8 L
[2021-03-30] MEDS: ENOXAPARIN 40 MG/0.4 ML SYRINGE SUB-Q (09:49)
[2021-03-30] MEDS: VENLAFAXINE HCL XR 75 MG CAP.ER.24H 150 MG PO (09:49)
[2021-03-30] MEDS: PANTOPRAZOLE SOD SESQUIHYDRATE 20 MG TAB PO (09:49)
[2021-03-30] MEDS: POTASSIUM CHLORIDE 20 MEQ PACKET (FOR LIQUID) 40 MEQ PO ×2 (09:49→17:06)
[2021-03-30] MEDS: ALVIMOPAN 12 MG CAPSULE PO ×2 (09:49→20:31)
[2021-03-30 14:00] VITALS: BP 140/95; PULSE 85; RESP 18; TEMP 36.7; O2SAT 100
[2021-03-30] MEDS: ONDANSETRON HCL ODT 4 MG TABLET PO (17:05)
[2021-03-30 21:42] VITALS: BP 142/89; PULSE 98; RESP 20; TEMP 36.7; O2SAT 94
[2021-03-30] MEDS: LORazepam (*CRX) 0.5 MG TABLET PO (22:06)
[2021-03-31] MEDS: HYDROcodone/acetaminophen (*CRX) 7.5-325 MG TABLET 1 TAB PO ×2 (04:37→09:01)
[2021-03-31 05:43] VITALS: BP 150/95; PULSE 80; RESP 20; TEMP 36.6; O2SAT 100
--- NOTE | 2021-03-31 08:29 | PM.DS ---
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 She was taken to surgery on the day of admission, March 26, 2021 by her web press roll tender Dr. Ac. At surgery it was found the patient had tremendous pelvic inflammation. This was completely unexpected. Laparoscopic oophorectomy was attempted but this had to be converted to open oophorectomy. A Pfannenstiel incision was made but was still inadequate to proceed with the surgery. There was a possible hole in the sigmoid colon as well. Dr. silver was called to the surgery. After discussion and inspection, the patient was converted to a lower abdominal midline incision. After this ensued a very difficult laparotomy. The pelvic and sigmoid colon inflammation was extremely severe with dense adhesions and obliteration of tissue planes. Identification of pelvic structures was extremely difficult. The sigmoid colon was very twisted and did appear to have a small hole in it. In trying to mobilize the sigmoid colon, the severely inflamed and twisted mid sigmoid little early came apart. This was despite great efforts to minimize any trauma to the tissues but in reality due to the severity of the inflammatory process. Sigmoidectomy was performed. The bilateral ovarian cysts were removed as well as both ovaries. Pathology is still pending at the time of this dictation. There was quite a bit of bleeding from adhesions as well as some of the ovarian vessels. Hemostasis was eventually achieved. 1200 cc blood loss occurred and 2 units of packed cells were transfused. The patient was never hemodynamically unstable. Hand-sewn colorectal anastomosis was done after the resection of the sigmoid colon. Postoperatively, the patient was observed overnight in the ICU. She had been extubated before coming to recovery. She did well and was started on liquids. Her Oh catheter was removed on postop day 2. . She transferred out of the intensive care unit on postop day 1. But due to a shortage of beds, boarded still in the ICU. Her diet was gradually advanced. Her pain improved and eventually she was comfortable on oral analgesics and eating solid food. She had bowel movements. Her wound was healing well. Her SOLOMON drain that was in the pelvis was removed on the day of discharge 03/31/2021. She was doing well and discharged in good condition. Status at Discharge Functional status at discharge: independent ambulation Overall status at discharge: patient is progressing back to baseline Time Spent with Patient Time attestation: Total time spent providing and/or coordinating discharge services: Exam GI: Inspection: non-distended, incision ( healing well. Still some drainage from lower portion of incision) and other ( SOLOMON drain serous) GI Palp: Yes Soft to palpation and Yes Tenderness to palpation present (GI) ( mild appropriate tenderness) Auscultation: normal bowel sounds DS: Data Data Completed and Pending Pending studies at discharge: Pending at discharge 03/26/21 15:44 Surgical [PTH] Routine Surgical [PTH] Routine Surgical [PTH] Routine Surgical [PTH] Routine Discharge Plan Discharge Attending physician on discharge: Ruben Ac Consulting providers: Otilio Silver ; Ruben Ac Discharging Clinician: Ruben Ac Anticipated Discharge Date/Time: 03/31/21 12:00
--- NOTE | 2021-03-31 08:36 | PM.PNGS ---
Progress Note: A&P Assessment and Plan (1) Chronic inflammation of colon: Code(s): K52.9 - Noninfective gastroenteritis and colitis, unspecified Status: Chronic Assessment and Plan: continues to improve. Patient remains anemic but this is stable. Bowels are functioning. Her wound is healing satisfactorily. She is comfortable on oral analgesics. Okay to be discharged from my perspective. I will see her this 04/03/2021. DC SOLOMON drain today. Dress abdominal wound daily after shower. (2) Pelvic inflammation in female: Code(s): N73.9 - Female pelvic inflammatory disease, unspecified Status: Chronic Assessment and Plan: Pathology pending. 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 Subjective Subjective Date/Time Seen: 03/31/21 08:36 Post Op day: 5 Patient reports: no new complaints, feels better, pain is less, tolerating a regular diet, bowel movement and afebrile Review of Systems Review of Systems: All systems reviewed & are unremarkable except as noted in HPI and below Constitutional: Constitutional: Denies anorexia, Denies body ache(s), Denies chills, Denies fever(s) and Denies headache(s) Gastrointestinal: Gastrointestinal: Reports as per HPI, Reports abdominal pain, Denies heartburn, Denies nausea and Denies vomiting Neurologic: Denies confusion and Denies headache(s) Exam Const: General: cooperative, comfortable, no acute distress, well developed, alert and awake; No confusion Orientation/consciousness: patient oriented x3 and No confusion GI: Inspection: non-distended, incision ( Healing well, still some drainage from lower portion of incision.), no obesity and other ( SOLOMON drain serous) GI Palp: Yes Soft to palpation, Yes Tenderness to palpation present (GI) ( mild appropriate tenderness), No Guarding due to palpation present (GI) and No Rebound tenderness present Auscultation: normal bowel sounds Neuro: General: patient oriented x3, no focal motor deficits and No confusion Extrem: General: no calf tenderness and no edema Psych: Affect: normal affect Insight: Good insight present (Psych) Judgement: Good judgement present (Psych) Objective Data Vital Signs Vital Signs: Vital Signs - 24 hr 03/30/21 14:00 03/30/21 21:42 03/31/21 05:43 Temperature 36.7 C 36.7 C 36.6 C Pulse Rate 85 98 80 Respiratory Rate 18 20 20 Blood Pressure 140/95 H 142/89 H 150/95 H Pulse Oximetry 100 94 100 Intake/Output Intake/Output: Intake & Output 03/28/21 03/29/21 03/30/21 03/31/21 23:59 23:59 23:59 23:59 Intake Total 2190 1620 2070 200 Output Total 2130 160 100 Balance 60 1460 1970 200 Meds/Results Medications: Active Medications Generic Name Dose Route Start Last Admin Trade Name Freq PRN Reason Stop Dose Admin Acetaminophen 500 mg 03/26/21 19:41 03/27/21 22:45 Acetaminophen 500 Mg Tablet PO 500 mg Q6H PRN Administration Mild Pain (1-3) or Fever Hydrocodone Bitart/Acetaminophen 1 tab 03/28/21 18:33 03/31/21 04:37 Hydrocodone/Acetaminophen (*Crx) 7.5-325 Mg Tablet PO 1 tab Q4H PRN Administration Pain Rated 6 or Greater Calcium Carbonate 200 mg 03/29/21 09:25 03/29/21 10:00 Calcium Carbonate (Tums) 500 Mg (200 Mg Elemental) PO 200 mg Q6H PRN Administration Indigestion Enoxaparin Sodium 40 mg 03/27/21 09:00 03/30/21 09:49 Enoxaparin 40 Mg/0.4 Ml Syringe SUB-Q 40 mg DAILY LETTY Administration Ibuprofen 600 mg 03/29/21 10:55 Ibuprofen 600 Mg Tablet PO Q6H PRN Pain Rated 1-3 Lorazepam 0.5 mg 03/29/21 10:56 03/30/21 22:06 Lorazepam (*Crx) 0.5 Mg Tablet PO 0.5 mg Q6H PRN Administration Anxiety Naloxone HCl 0.1 mg 03/26/21 19:41 Naloxone Hcl 0.4 Mg/Ml Vial IV PUSH Q2M PRN Opiate Reversal Ondansetron HCl 4 mg 03/29/21 10:57 03/30/21
--- NOTE | 2021-03-31 08:49 | P.PNOB_ITS ---
OFFENDER JOB RETENTION SPECIALIST - A/P Postoperative Procedures: Procedures Operation Date: 03/26/21 13:00 Actual Procedure Side Surgeon p Diagnostic Laparoscopy converted to Open Laparotomy,Bilateral Oophorectomy,Excision Peritoneal Cyst,Lysis of Adhesions Not Applicable Ruben Ac MD s Proximal and Distal Sigmoidectomy with Hand Sewn Anastamosis Not Applicable Otilio Davila MD A: POD#5, doing well. P: I have spoken with Dr. Davila, and he is comfortable with discharge to home. F/u with him in 3 days. F/u with me the following week. Time Spent With Patient Time with patient: less than 15 minutes OFFENDER JOB RETENTION SPECIALIST- PN:Subj Post-Op Subjective Date/time seen: 03/31/21 08:49 Interval history: Pain OK. Had bm x 2 yesterday. Tolerating diet. Exam Narrative: Exam Narrative: AVSS ABD soft, nontender, fundus firm. Incision c/d/i. EXT nontender OFFENDER JOB RETENTION SPECIALIST - PN: Obj Data Vital Signs Vital Signs: Vital Signs - 24 hr 03/30/21 14:00 03/30/21 21:42 03/31/21 05:43 Temperature 36.7 C 36.7 C 36.6 C Pulse Rate 85 98 80 Respiratory Rate 18 20 20 Blood Pressure 140/95 H 142/89 H 150/95 H Pulse Oximetry 100 94 100 Intake/Output Intake/Output: Intake & Output 03/28/21 03/29/21 03/30/21 03/31/21 23:59 23:59 23:59 23:59 Intake Total 2190 1620 2070 200 Output Total 2130 160 100 Balance 60 1460 1970 200 Meds/Results Medications: Active Medications Generic Name Dose Route Start Last Admin Trade Name Freq PRN Reason Stop Dose Admin Acetaminophen 500 mg 03/26/21 19:41 03/27/21 22:45 Acetaminophen 500 Mg Tablet PO 500 mg Q6H PRN Administration Mild Pain (1-3) or Fever Hydrocodone Bitart/Acetaminophen 1 tab 03/28/21 18:33 03/31/21 04:37 Hydrocodone/Acetaminophen (*Crx) 7.5-325 Mg Tablet PO 1 tab Q4H PRN Administration Pain Rated 6 or Greater Calcium Carbonate 200 mg 03/29/21 09:25 03/29/21 10:00 Calcium Carbonate (Tums) 500 Mg (200 Mg Elemental) PO 200 mg Q6H PRN Administration Indigestion Enoxaparin Sodium 40 mg 03/27/21 09:00 03/30/21 09:49 Enoxaparin 40 Mg/0.4 Ml Syringe SUB-Q 40 mg DAILY LETTY Administration Ibuprofen 600 mg 03/29/21 10:55 Ibuprofen 600 Mg Tablet PO Q6H PRN Pain Rated 1-3 Lorazepam 0.5 mg 03/29/21 10:56 03/30/21 22:06 Lorazepam (*Crx) 0.5 Mg Tablet PO 0.5 mg Q6H PRN Administration Anxiety Naloxone HCl 0.1 mg 03/26/21 19:41 Naloxone Hcl 0.4 Mg/Ml Vial IV PUSH Q2M PRN Opiate Reversal Ondansetron HCl 4 mg 03/29/21 10:57 03/30/21 17:05 Ondansetron Hcl Odt 4 Mg Tablet PO 4 mg Q4H PRN Administration Nausea And Vomiting Pantoprazole Sodium 20 mg 03/29/21 09:20 03/30/21 09:49 Pantoprazole Sod Sesquihydrate 20 Mg Tab PO 20 mg QAM LETTY Administration Potassium Chloride 40 meq 03/28/21 09:00 03/30/21 17:06 Potassium Chloride 20 Meq Packet (For Liquid) PO 40 meq BIDWM LETTY Administration Venlafaxine HCl 150 mg 03/27/21 21:00 03/30/21 09:49 Venlafaxine Hcl Xr 75 Mg Cap.Er.24h PO 150 mg DAILY LETTY Administr
[2021-03-31] MEDS: VENLAFAXINE HCL XR 75 MG CAP.ER.24H 150 MG PO (08:57)
[2021-03-31] MEDS: ENOXAPARIN 40 MG/0.4 ML SYRINGE SUB-Q (08:57)
[2021-03-31] MEDS: POTASSIUM CHLORIDE 20 MEQ PACKET (FOR LIQUID) 40 MEQ PO (08:57)
[2021-03-31] MEDS: PANTOPRAZOLE SOD SESQUIHYDRATE 20 MG TAB PO (08:57)
[2021-03-31] MEDS: ONDANSETRON HCL ODT 4 MG TABLET PO (09:01)
== END 2021-03-31 11:25 | disposition home or self-care (01) | DRG 742 ==
LOC: ANHICU 03-27 11:20 → ANH3MEDSUR 03-29 10:15 → ANHICU 04-01 16:57
PROVIDERS: Anesthesiology; Internal Medicine; Surgery; Admitting Provider Obstetrics & Gynecology; PCP Family Medicine; Visit Provider Obstetrics & Gynecology
PROC: 0UT20ZZ Resection of Bilateral Ovaries, Open Approach (ICD-10-PCS; CPT 49320; principal; 2021-03-26 13:00)
PROC: 0DBN0ZZ Excision of Sigmoid Colon, Open Approach (ICD-10-PCS; CPT 44143; 2021-03-26 13:00)
DX: N73.8 Other specified female pelvic inflammatory diseases (principal); J84.81 Lymphangioleiomyomatosis; Z53.31 Laparoscopic surgical procedure converted to open procedure; K66.8 Other specified disorders of peritoneum; N73.6 Female pelvic peritoneal adhesions (postinfective); N83.202 Unspecified ovarian cyst, left side; K52.89 Other specified noninfective gastroenteritis and colitis; N83.201 Unspecified ovarian cyst, right side; F41.9 Anxiety disorder, unspecified; F32.9 Major depressive disorder, single episode, unspecified; Z90.710 Acquired absence of both cervix and uterus; Z87.891 Personal history of nicotine dependence
CPT/HCPCS: 36415; 36430; 80048; 83735; 84100; 85025; 85027; 85610; 85730; 86850; 86900; 86901; 86920; 88305; 88307; A9270; C1713; C1729; J0690; J1100; J1170; J1650; J1741; J1885; J2060; J2250; J2270; J2405; J2704; J2710; J3010; J7030; J7120; P9016